=== PATIENT | female | born 1965 | race Two or more races ===

== ENCOUNTER 2021-11-03 09:01 | Outpatient (REF) | payer MEDICAID, OTHER, SELFPAY ==
--- NOTE | ~2021-11-03 | MM_ITS ---
EXAMINATION: BONE DENSITOMETRY CLINICAL INDICATION: Menopausal. COMPARISON: None (current study represents initial baseline exam). TECHNIQUE: Using a Integrated [employer] Processing DXA System (software version: 13.1) manufactured by [employer], dual-energy x-ray absorptiometry was performed of the lumbar spine and left hip. The images are of good technical quality. Summary results are attached. FINDINGS: AP SPINE L1-L4: BMD 1.141 g/cm2, Z-score -0.8, T-score -0.3, normal. LEFT FEMUR, NECK: BMD 0.743 g/cm2, Z-score -1.9, T-score -2.1, osteopenia. LEFT FEMUR, TOTAL: BMD 0.999 g/cm2, Z-score -0.3, T-score -0.1, normal. IDENTIFIED RISK FACTORS: Low calcium intake, thiazide, menopause, hysterectomy, left oophorectomy. HISTORY OF FRACTURE: None listed. MEDICATIONS: Calcium supplements or multivitamin, vitamin D. MM/XR DEXA axial skeleton IMPRESSION: 1. DIAGNOSIS: Osteopenia based on the lowest T-score value of -2.1 in the femoral neck applying World Health Organization criteria. 2. 10-YEAR FRACTURE RISK PREDICTION, FRAX: Major osteoporotic fracture (clinical spine, forearm, hip or shoulder) 3.8%. Hip fracture 0.5%. 3. Treatment Recommendations: NOF guidelines recommend consideration for treatment in postmenopausal women and men age 50 and older presenting with the following: -A hip or vertebral (clinical or morphometric) fracture. -T-score less than or equal to -2.5 at the femoral neck or spine after appropriate evaluation to exclude secondary causes. -Low bone mass at the hip or spine and a 10-year fracture probability by FRAX of greater than or equal to 3% for hip fracture or greater than or equal to 20% for major osteoporotic fracture based on the [place] adapted WHO algorithm. 4. Other Recommendations: All treatment decisions require clinical judgment and consideration of individual patient factors, including patient preferences, comorbidities, previous drug use, risk factors not captured in the FRAX model (e.g. frailty, falls, vitamin D deficiency, increased bone turnover, interval significant decline in bone density) and possible under or overestimation of fracture risk by FRAX. Additional medical evaluation for secondary cause of low bone mineral density may be appropriate. FUTURE SCAN RECOMMENDATION: People with diagnosed cases of osteoporosis or at high risk for fracture should have regular bone mineral density tests. For patients eligible for Medicare, routine testing is allowed once every 2 years. The testing frequency can be increased to one year for patients who have rapidly progressing disease, those who are receiving or discontinuing medical therapy to restore bone mass, or have additional risk factors.
== END 2021-11-03 09:02 | disposition home or self-care (01) ==
LOC: HO.MAMMO 09:01
PROVIDERS: PCP Nurse Practitioner Family; Visit Provider Nurse Practitioner Family
DX: Z13.820 Encounter for screening for osteoporosis (principal); Z78.0 Asymptomatic menopausal state; M85.80 Other specified disorders of bone density and structure, unspecified site
CPT/HCPCS: 77080

== ENCOUNTER 2022-06-28 09:41 | Outpatient (REF) | payer MEDICAID, OTHER, SELFPAY ==
--- NOTE | ~2022-06-28 | XR_ITS ---
EXAMINATION: XR CERVICAL SPINE CLINICAL INFORMATION: Neck pain COMPARISON: None TECHNIQUE: 6 views of the cervical spine, inclusive of flexion and extension views, were obtained. FINDINGS: The vertebral alignment is normal. No intrinsic bony abnormality. The disc heights and neural foramina are well maintained. The endplates and posterior elements are normal. No fracture or subluxation. The surrounding prevertebral soft tissues are unremarkable. XR/XR cervical spine min 6V IMPRESSION: Unremarkable cervical spine examination.
== END 2022-06-28 09:42 | disposition home or self-care (01) ==
LOC: HO.XRAY 09:41
PROVIDERS: PCP Registered Nurse; Visit Provider Emergency Medicine
DX: M54.2 Cervicalgia (principal)
CPT/HCPCS: 72052

== ENCOUNTER 2023-01-31 | Outpatient (REF) | payer MEDICAID, OTHER, SELFPAY ==
--- NOTE | ~2023-01-31 | US_ITS ---
EXAMINATION: US ABDOMEN COMPLETE CLINICAL INFORMATION: Right upper quadrant abdominal pain. COMPARISON: None available. TECHNIQUE: Real-time imaging of the abdominal viscera. FINDINGS: PANCREAS: Largely obscured by bowel gas limiting evaluation. ABDOMINAL AORTA: The proximal, mid, and distal segments are normal in caliber. INFERIOR VENA CAVA: Visualized portions are normal. LIVER: The liver is normal in size. The liver contour is normal. Increased hepatic echogenicity which can be seen in the setting of hepatic steatosis or underlying liver disease. No focal hepatic lesion. There is no intrahepatic biliary duct dilatation seen. GALLBLADDER: Normal. The gallbladder is physiologically distended without evidence of stones, sludge, polyps, wall thickening or pericholecystic fluid. COMMON BILE DUCT: Normal in caliber measuring 0.4 cm in diameter. RIGHT KIDNEY: Normal. No hydronephrosis. No renal calculi or focal parenchymal lesions. The kidney measures 9.9 cm in maximum dimension. LEFT KIDNEY: Normal. No hydronephrosis. No renal calculi or focal parenchymal lesions. The kidney measures 10.2 cm in maximum dimension. SPLEEN: Normal. The spleen measures 7.6 cm in maximum dimension. FREE FLUID: None. US/US abdomen complete IMPRESSION: Increased hepatic echogenicity which can be seen in the setting of hepatic steatosis or underlying liver disease.
== END 2023-01-31 00:01 | disposition home or self-care (01) ==
LOC: HO.US
PROVIDERS: Visit Provider Registered Nurse
DX: R10.10 Upper abdominal pain, unspecified (principal)
CPT/HCPCS: 76700

== ENCOUNTER 2023-02-13 08:30 | Emergency (ER) | payer MEDICAID, OTHER, SELFPAY ==
--- NOTE | ~2023-02-13 | XR_ITS ---
EXAMINATION: XR WRIST, LEFT XR HAND, LEFT CLINICAL INFORMATION: Pain COMPARISON: None available. TECHNIQUE: 4 views of the left hand and wrist FINDINGS: Bone alignment is normal. No acute fracture or dislocation is seen. The joint spaces are normal. There is a periarticular soft tissue calcification or ossification adjacent to the first DETENTION joint likely related to old trauma. Soft tissues are otherwise normal. XR/XR hand wrist LT IMPRESSION: Periarticular soft tissue calcification or ossification adjacent to the first DETENTION joint likely related to old trauma. No acute fracture or dislocation. No evidence of arthritis.
[2023-02-13 08:58] VITALS: BP 108/69; PULSE 61; RESP 18; TEMP 36.7; O2SAT 100; BMI 39.3
--- NOTE | 2023-02-13 09:49 | PC.NURSE ---
Patient presenting with injury to left hand, patient is guarding this hand at this time.
[2023-02-13] MEDS: Ibuprofen 800 MG TABLET PO (11:13)
[2023-02-13] MEDS: predniSONE 20 MG TABLET 60 MG PO (11:14)
--- NOTE | 2023-02-13 12:05 | ED.EXTPRO ---
HPI - Extremity Problem General Chief complaint: Extremity Injury, Upper Stated complaint: Left hand pain/swollen Time Seen by Provider: 02/13/23 10:16 Source: patient Mode of arrival: ambulatory Limitations: no limitations History of Present Illness HPI Narrative: 57 yold female presents to the ED for left thumb and wrist pain since yesterday that is worse on movement. patient denies any recent trauma, fever, chest pain, neck pain, shortness of breath or pain from neck radiating down arm. Patient states only left thumb pain with slight swelling at thumb joint. patient denies any redness, bluisch black discoroation, slurred speech, facial droop, paraysls of extremites, headache, or loss of vision. Related Data Previous Rx's Medication Instructions Recorded indomethacin 50 mg capsule 50 mg PO TID 5 days #15 caps 02/13/23 prednisone 20 mg tablet 40 mg PO DAILY 5 days #10 tabs 02/13/23 Allergies Allergy/AdvReac Type Severity Reaction Status Date / Time No Known Allergies Allergy Verified 02/13/23 08:57 Review of Systems Review of Systems: left thubm/hand pain Yes all other systems are reviewed and are negative [facility] Social History Social History Alcohol intake: never Smoked in Last 30 Days: No Use of substances other than those prescribed or required for medical reasons: No Advance Directives: No Advance Directives Information Provided: Yes Physical Exam Vital Signs: Vital Signs: Last Vital Signs Temp 98.0 F 02/13/23 08:58 Pulse 61 02/13/23 08:58 Resp 18 02/13/23 08:58 BP 108/69 02/13/23 08:58 Pulse Ox 100 02/13/23 08:58 O2 Del Method Room Air 02/13/23 08:58 BMI result Body Mass Index 39.3 Const: General: cooperative, healthy appearing, comfortable, no acute distress, well developed, alert, awake and Physically active Orientation/consciousness: oriented to person, oriented to place, oriented to time and patient oriented x3 HEENT: Head: Yes normal to inspection, Yes No palpable skull fracture present, Yes normocephalic, Yes atraumatic and No abrasion Eyes: General: appearance normal, both eyes and all related structures Neck: Neck: Yes normal visual inspection, Yes full ROM, Yes no lymphadenopathy, Yes no meningeal signs, Yes trachea midline, Yes supple, No anterior neck swelling and No tender Chest: Chest palpation & inspection: normal inspection of the chest and normal palpation of entire chest wall Resp: Effort & Inspection: normal respiratory effort and able to speak in complete sentences Auscultation: clear to auscultation bilaterally Cardio: Jugular venous distension: no JVD Heart sounds: S1 normal heart sound present and S2 normal heart sound present GI: Inspection: Yes normal to inspection and No abdominal wall ecchymosis Palpation (GI): Soft to palpation, not firm, nontender, no guarding and not rigid : General: No CVA tenderness and Yes no CVA tenderness Back/Spine/Pelvis: Back: no CVA tenderness, No CVA tenderness and No back tenderness Skin: General skin exam: no rashes or lesions noted, elasticity normal and turgor normal Neuro: General: oriented to person, oriented to place, oriented to time, patient oriented x3, gait normal, tone normal, moves all extremities, Normal light touch and pain sensation, no meningeal signs, no focal motor deficits, CN's II-XI intact bilaterally and normal sensation to monofilament Extrem: General: Yes normal to inspection and Yes full ROM Hand/finger images: 1. positive for slight swelling and tenderness on palpation. Patient has pain on movement of thumb. Negative for any erythema, warmth swelling, ecchymosis, warmth, or deformity. Rest of extremity normal. Motor/neruo/vascular exam is intact. LEft thumb movement limited due to pain. Positive snufff box tenderness Psych: Appearance: grossly normal, well kempt and not disheveled Medications Administered Discontinued Medications Generic Name Dose Route Start Last Admin Trade Name Freq PRN Reason Stop Dose Admin Ibuprofen 800 mg 02/13/23 10:54 02/13/23 11:13 Ibuprofen 800 Mg Tablet PO 02/13/23 10:55 800 mg ONCE ONE Administration Prednisone 60 mg 02/13/23 10:54 02/13/23 11:14 Prednisone 20 Mg Tablet PO 02/13/23 10:55 60 mg ONCE ONE Administration Medical Decision Making Medical Decision Making MDM Narrative: 57 yold female presents to the ED for left thumb pain pain that is worse on movement ( thumb joint) since yesteday. Patient denies any recent trauma, redness, fever, chills, neck pain, chest pain, shortness of breath, paralysis of extremities, facial droop, loss of visions, or slurred speech. History physical exam does not indicate tenosynovitis, stroke, myocardial infarction, septic joint, cellulitis, abscess, DVT, or arterial occlusion. Arthritis versus gout. positive for snuff box tendrness. 2:00pm patient states better improved range of motion of left thumb. Differential Diagnosis Differential Diagnoses: The differential diagnosis associated with the presentation includes (gout, arthirits, fracture, septic joint, cellulitis, DVT, arterial occlusion) Admission/Observation Consideration of admission/observation: Escalation of care including admission/observation considered Independent Interpretation I performed an independent interpretation of an: Plain X-Ray Radiology Impression Discussion of test interpretation with radiology: I have reviewed the radiologist's reading. Independent Historian Clinical information obtained from an independent historian. History obtained from or confirmed by: Other (obiee obia solution architect) Prescription Management I considered prescription management with: Pain Medication and Other (Steroid) Discharge Plan Discharge Clinical Impression: Pain of left thumb Patient Disposition: Home, Self-Care Instructions: Arthralgia (ED) Additional Instructions: La radiograf?a result? normal o negativa para cualquier fractura. El diferencial podr?a ser artritis versus gota. Siga al proveedor de atenci?n primaria para loc evaluaci?n adicional. Tambi?n tiene dolor de caja de rap?, se le colocar? loc f?marko en espiga para el pulgar. Regrese al servicio de urgencias de inmediato si empeora el dolor, aumenta la hinchaz?n, no puede piano mover el ron de los dedos de las extremidades, tiene calor, fr?o, fiebre, escalofr?os, dolor en el pecho, dificultad para respirar, estr?as pearce, hinchaz?n de las extremidades superiores, enrojecimiento de los dedos o cualquier otro s?ntoma preocupante. Prescriptions: New prednisone 20 mg tablet 40 mg PO DAILY 5 Days Qty: 10 0RF indomethacin 50 mg capsule 50 mg PO TID 5 Days Qty: 15 0RF Rx Instructions: administer with food or milk Stand Alone Forms: Work/School Release Print Language: Bulgarian
[2023-02-13 14:28] VITALS: BP 151/66; PULSE 62; RESP 16; O2SAT 98
[2023-02-13 14:30] VITALS: BP 151/66; PULSE 62; RESP 16; O2SAT 98
== END 2023-02-13 14:37 | disposition home or self-care (01) ==
PROVIDERS: Emergency Provider Emergency Medicine Emergency Medical Services; PCP Registered Nurse
DX: M79.645 Pain in left finger(s) (principal)
CPT/HCPCS: 29125; 73110; 73130; 99283; 99284

== ENCOUNTER 2023-02-17 10:32 | Outpatient (REF) | payer MEDICAID, OTHER, SELFPAY ==
[2023-02-17 13:29] LABS: Alanine Aminotransferase 24 U/L (0-31); Albumin Level 3.9 g/dL (3.5-5.0); Alkaline Phosphatase 51 U/L (39-117); Aspartate Amino Transferase 30 U/L (5-31); Bilirubin Direct 0.1 mg/dL (0.0-0.5); Bilirubin Total 0.4 mg/dL (0.0-1.0); Cholesterol 214 mg/dL; HDL Cholesterol 56 mg/dL; LDL Cholesterol Calculated 145 mg/dl; Total Protein 6.9 g/dL (6.5-8.0); Triglycerides 67 mg/dL
[2023-02-18 09:08] LABS: HBS Num1 0.28 mIU/mL (0-7.99); HBc Num1 0.08 S/CO (0.00-0.79); HBsAGNum1 0.36 S/CO (0.00-0.99); Hepatitis A Antibody IgM 0.28 Index (0-0.79); Hepatitis B Core Antibody Nonreactive (Nonreactive); Hepatitis B Surface Antigen Negative (Negative); ~HepC Num1 0.14 S/CO (0.00-0.79); ~Hepatitis A Antibody IgM Nonreactive (Nonreactive); ~Hepatitis B Surface Antibody NONREACTIVE (Nonreactive); ~Hepatitis C Antibody Nonreactive (Nonreactive)
== END 2023-02-17 10:33 | disposition home or self-care (01) ==
LOC: HO.HHCL 10:32
PROVIDERS: Visit Provider Registered Nurse
DX: K76.0 Fatty (change of) liver, not elsewhere classified (principal)
CPT/HCPCS: 36415; 80061; 80076; 86704; 86706; 86709; 86803; 87340

== ENCOUNTER 2023-02-18 12:56 | Outpatient (REF) | payer MEDICAID, OTHER, SELFPAY | END 2023-02-18 12:57 | disposition home or self-care (01) | LOC: HO.HDCLNP 12:56 | PROVIDERS: Visit Provider Registered Nurse | DX: A04.8 Other specified bacterial intestinal infections (principal) | CPT/HCPCS: 87338 ==

== ENCOUNTER 2023-03-06 16:42 | Emergency (ER) | payer MEDICAID, OTHER, SELFPAY ==
[2023-03-06 17:27] VITALS: BP 142/90; PULSE 77; RESP 18; TEMP 36; O2SAT 97; BMI 38.9
--- NOTE | 2023-03-06 17:31 | ED.GENADULT ---
HPI - General Adult General Chief complaint: GI Bleed Stated complaint: pain in bottom Time Seen by Provider: 03/06/23 19:43 Related Data Previous Rx's Medication Instructions Recorded indomethacin 50 mg capsule 50 mg PO TID 5 days #15 caps 02/13/23 prednisone 20 mg tablet 40 mg PO DAILY 5 days #10 tabs 02/13/23 hydrocortisone 1 %-pramoxine 1 % 1 appl RI BID PRN hemorrhoids #10 03/06/23 rectal foam (Proctofoam HC) grams polyethylene glycol 3350 17 17 g PO DAILY #510 grams 03/06/23 gram/dose oral powder (Miralax) Allergies Allergy/AdvReac Type Severity Reaction Status Date / Time No Known Allergies Allergy Verified 02/13/23 08:57 [facility] Social History Social History Alcohol intake: never Smoked in Last 30 Days: No Advance Directives: No Advance Directives Information Provided: Yes Patient : No Physical Exam ED Vital Signs: Vital Signs - 24 hr 03/06/23 17:27 Temperature 96.8 F Pulse Rate 77 Respiratory Rate 18 Blood Pressure 142/90 H Pulse Oximetry 97 Oxygen Delivery Method Room Air BMI result Body Mass Index 38.9 Appearance: Alert. Oriented X3. No acute distress. ENT: Pharynx normal. Oral Mucosa moist Neck: Normal inspection. Neck supple. CVS: Normal heart rate and rhythm. Pulses normal. Respiratory: No respiratory distress. Equal air entry bilateral, no wheezing/rales/rhonchi Abdomen: Soft and nontender. Bowel sounds are present, no mass palpable, no CVA tenderness rectum: Internal hemorrhoids not bleeding mild tenderness Skin: Skin warm and dry. Normal skin color. Normal skin turgor. Extremities: No lower extremity edema. No calf tenderness Neuro: Oriented X 3. No motor deficit. Course Course Course Narrative: RME: 57 yold female presents to the ED for rectal pain due to hemmhroids. patient admits to straining and mild constipation. patient states she had blood in stool last tuesday and has resolved. Patient Daughter showed us picutre of bright red blood in toilet. labs ordered Medications Administered Discontinued Medications Generic Name Dose Route Start Last Admin Trade Name Freq PRN Reason Stop Dose Admin Bisacodyl 10 mg 03/06/23 20:26 03/06/23 20:35 Bisacodyl 5 Mg Tablet.Dr BRIONES 03/06/23 20:27 10 mg ONCE ONE Administration Magnesium Hydroxide 30 ml 03/06/23 20:26 03/06/23 20:35 Milk Of Magnesia 30 Ml Oral.Susp PO 03/06/23 20:27 30 ml ONCE ONE Administration Medical Decision Making Lab Data 03/06/23 17:50 03/06/23 17:50 Labs: Lab Results 03/06/23 03/06/23 03/06/23 Range/Units 17:50 17:50 17:50 WBC 6.5 (4.8-10.8) X10*3/uL RBC 4.26 (4.20-5.50) X10*6/uL Hgb 12.0 (12.0-16.0) g/dl Hct 37.0 (37.0-47.0) % MCV 86.9 (80.0-98.0) fL MCH 28.2 (27.0-33.0) pg MCHC 32.4 (31.0-35.0) g/dl RDW 13.2 (11.0-16.0) % Plt Count 335 (160-400) X10*3/uL MPV 10.7 (9.4-12.3) fL Immature Gran % (Auto) 0.2 (0.0-0.4) % Neut % (Auto) 47.3 (45-73) % Lymph % (Auto) 42.7 H (20-40) % [place] % (Auto) 8.1 (2-11) % Eos % (Auto) 1.4 (0-4) % Baso % (Auto) 0.3 (0-2) % Lymph # (Auto) 2.8 (1.2-4.9) X10*3/uL [place] # (Auto) 0.5 (0.1-1.2) X10*3/uL Eos # (Auto) 0.1 (0.0-0.4) X10*3/uL Baso # (Auto) 0.0 (0.0-0.2) X10*3/uL Abs Immat Gran (auto) 0.01 (0.00-0.03) X10*3/uL Absolute Neuts (auto) 3.1 (2.0-8.3) x10*3/uL Absolute Nucleated RBC 0.000 (0.0-0.012) X10*3/uL Nucleated RBC % (auto) 0.0 (0.0-0.2) /100WBC PT 12.4 (11.1-13.3) SEC INR 1.0 (0.9-1.1) APTT 27.8 (26.0-36.4) SEC Sodium 143 (135-145) mmol/L Potassium 4.0 (3.3-5.1) mmol/L Chloride 104 (96-108) mmol/L Carbon Dioxide 29 (22-29) mmol/L Anion Gap 14 (12-20) BUN 12 (9-16) mg/dL Creatinine 0.84 (0.5-1.4) mg/dL Estim Creat Clear Calc 85.2 Estimated GFR > 60 Random Glucose 97 (60-115) mg/dL Calcium 9.8 (8.4-10.2) mg/dL Total Bilirubin 0.4 (0.0-1.0) mg/dL AST 18 (5-31) U/L ALT 13 (0-31) U/L Alkaline Phosphatase 56 (39-117) U/L Total Protein 7.7 (6.5-8.0) g/dL Albumin 4.3 (3.5-5.0) g/dL Discharge Plan Discharge Clinical Impression: Hemorrhoids Patient Disposition: Home, Self-Care Instructions: Constipation (ED), Hemorrhoids (ED) Additional Instructions: Drink plenty of fluids Stool softener as advised Avoid straining Proctofoam foam twice daily till it heals completely Beber mucho l?quido Suavizante de heces seg?n lo recomendado Evite esforzarse Espuma Proctofoam dos veces al d?a hasta que sane por completo Prescriptions: New polyethylene glycol 3350 [Miralax] 17 gram/dose powder 17 g PO DAILY Qty: 510 0RF Proctofoam HC 1-1 % foam 1 appl RI BID PRN (Reason: hemorrhoids) Qty: 10 0RF No Action prednisone 20 mg tablet 40 mg PO DAILY 5 Days Qty: 10 0RF indomethacin 50 mg capsule 50 mg PO TID 5 Days Qty: 15 0RF Rx Instructions: administer with food or milk Interventions: ED Discharge Assessment Last Done: 03/06/23 20:35 Discharge Date/Time: 03/06/23 20:36 Print Language: Romanian
[2023-03-06 17:55] LABS: MANUAL DIFF FLAG NO
[2023-03-06 17:56] LABS: Basophils Percent Auto 0.3 % (0-2); Eosinophils Absolute Auto 0.1 X10*3/uL (0.0-0.4); Eosinophils Percent Auto 1.4 % (0-4); Imm Gran Abs Auto 0.01 X10*3/uL (0.00-0.03); Imm Gran Pct Auto 0.2 % (0.0-0.4); Lymphocytes Absolute Auto 2.8 X10*3/uL (1.2-4.9); Lymphocytes Percent Auto 42.7 % (20-40); Mean Corpuscular HGB Conc 32.4 g/dl (31.0-35.0); Mean Corpuscular Hemoglobin 28.2 pg (27.0-33.0); Mean Corpuscular Volume 86.9 fL (80.0-98.0); Mean Platelet Volume 10.7 fL (9.4-12.3); Monocytes Absolute Auto 0.5 X10*3/uL (0.1-1.2); Monocytes Percent Auto 8.1 % (2-11); Neutrophils Absolute Auto 3.1 x10*3/uL (2.0-8.3); Neutrophils Percent Auto 47.3 % (45-73); Platelet Count 335 X10*3/uL (160-400); Red Blood Count 4.26 X10*6/uL (4.20-5.50); Red Cell Distribution Width 13.2 % (11.0-16.0); White Blood Count 6.5 X10*3/uL (4.8-10.8)
[2023-03-06 18:02] LABS: Prothrombin Time 12.4 SEC (11.1-13.3)
[2023-03-06 18:05] LABS: Partial Thromboplastin Time 27.8 SEC (26.0-36.4)
[2023-03-06 18:17] LABS: Alanine Aminotransferase 13 U/L (0-31); Albumin Level 4.3 g/dL (3.5-5.0); Alkaline Phosphatase 56 U/L (39-117); Anion Gap 14 (12-20); Aspartate Amino Transferase 18 U/L (5-31); Bilirubin Total 0.4 mg/dL (0.0-1.0); Blood Urea Nitrogen 12 mg/dL (9-16); Calcium 9.8 mg/dL (8.4-10.2); Carbon Dioxide 29 mmol/L (22-29); Chloride 104 mmol/L (96-108); Creatinine Clr Calc Pharmacy 85.2; Estimated Glomerular Filt Rate > 60; Glucose Random 97 mg/dL (60-115); Sodium 143 mmol/L (135-145); Total Protein 7.7 g/dL (6.5-8.0)
[2023-03-06] MEDS: Milk of Magnesia 30 ML ORAL.SUSP PO (20:35)
[2023-03-06] MEDS: bisacodyL 5 MG TABLET.DR 10 MG PO (20:35)
== END 2023-03-06 20:36 | disposition home or self-care (01) ==
PROVIDERS: Physician Assistant; Emergency Provider Internal Medicine; PCP Registered Nurse
DX: K64.9 Unspecified hemorrhoids (principal); K62.89 Other specified diseases of anus and rectum; Z79.899 Other long term (current) drug therapy
CPT/HCPCS: 36415; 80053; 85025; 85610; 85730; 99283; 99284

== ENCOUNTER 2023-11-21 16:29 | Outpatient (REF) | payer MEDICAID, OTHER, SELFPAY ==
[2023-11-21 17:49] LABS: MANUAL DIFF FLAG NO
[2023-11-21 18:25] LABS: Iron 60 mcg/dL (30-160); Percent Iron Saturation 24 % (15-50); Total Iron Binding Capacity 250 mcg/dL (228-428); Unsaturated Iron Binding 190 ug/dL
[2023-11-21 18:47] LABS: Folate 14.1 ng/mL (> or = 4.0); Vitamin B12 312 pg/mL (200-900)
[2023-11-21 19:01] LABS: Basophils Percent Auto 0.6 % (0-2); Eosinophils Absolute Auto 0.1 X10*3/uL (0.0-0.4); Hematocrit 35.9 % (37.0-47.0); Hemoglobin 11.6 g/dl (12.0-16.0); Imm Gran Abs Auto 0.01 X10*3/uL (0.00-0.03); Imm Gran Pct Auto 0.2 % (0.0-0.4); Lymphocytes Absolute Auto 2.5 X10*3/uL (1.2-4.9); Lymphocytes Percent Auto 50.1 % (20-40); Mean Corpuscular HGB Conc 32.3 g/dl (31.0-35.0); Mean Corpuscular Hemoglobin 28.7 pg (27.0-33.0); Mean Corpuscular Volume 88.9 fL (80.0-98.0); Monocytes Absolute Auto 0.3 X10*3/uL (0.1-1.2); Monocytes Percent Auto 6.9 % (2-11); Neutrophils Percent Auto 40.2 % (45-73); Platelet Count 310 X10*3/uL (160-400); Red Blood Count 4.04 X10*6/uL (4.20-5.50); Red Cell Distribution Width 13.4 % (11.0-16.0); White Blood Count 4.9 X10*3/uL (4.8-10.8)
== END 2023-11-21 16:30 | disposition home or self-care (01) ==
LOC: HO.HHCL 16:29
PROVIDERS: Visit Provider Emergency Medicine
DX: K92.1 Melena (principal)
CPT/HCPCS: 36415; 82607; 82746; 83540; 85025

== ENCOUNTER 2024-06-25 10:43 | Outpatient (REF) | payer MEDICAID, OTHER, SELFPAY ==
[2024-06-25 13:35] LABS: Basophils Percent Auto 0.7 % (0-2); Eosinophils Absolute Auto 0.1 X10*3/uL (0.0-0.4); Eosinophils Percent Auto 1.5 % (0-4); Hematocrit 36.2 % (37.0-47.0); Hemoglobin 11.7 g/dl (12.0-16.0); Imm Gran Abs Auto 0.01 X10*3/uL (0.00-0.03); Imm Gran Pct Auto 0.2 % (0.0-0.4); Lymphocytes Absolute Auto 2.2 X10*3/uL (1.2-4.9); Lymphocytes Percent Auto 48.8 % (20-40); MANUAL DIFF FLAG NO; Mean Corpuscular HGB Conc 32.3 g/dl (31.0-35.0); Mean Corpuscular Hemoglobin 28.6 pg (27.0-33.0); Mean Corpuscular Volume 88.5 fL (80.0-98.0); Mean Platelet Volume 11.1 fL (9.4-12.3); Monocytes Absolute Auto 0.5 X10*3/uL (0.1-1.2); Monocytes Percent Auto 10.1 % (2-11); Neutrophils Absolute Auto 1.8 x10*3/uL (2.0-8.3); Neutrophils Percent Auto 38.7 % (45-73); Platelet Count 329 X10*3/uL (160-400); Red Blood Count 4.09 X10*6/uL (4.20-5.50); Red Cell Distribution Width 13.5 % (11.0-16.0); White Blood Count 4.6 X10*3/uL (4.8-10.8)
[2024-06-25 14:23] LABS: Alanine Aminotransferase 18 U/L (0-31); Alkaline Phosphatase 55 U/L (39-117); Amylase 49 U/L (28-100); Anion Gap 10 (12-20); Aspartate Amino Transferase 22 U/L (5-31); Bilirubin Total 0.3 mg/dL (0.0-1.0); Blood Urea Nitrogen 13 mg/dL (9-16); Calcium 9.2 mg/dL (8.4-10.2); Carbon Dioxide 28 mmol/L (22-29); Chloride 109 mmol/L (96-108); Estimated Glomerular Filt Rate > 60; Glucose Random 99 mg/dL (60-115); Lipase 24 U/L (8-78); Potassium 4.5 mmol/L (3.3-5.1); Sodium 142 mmol/L (135-145)
[2024-06-26 15:00] LABS: H Pylori Breath Test Negative (Negative)
== END 2024-06-25 10:44 | disposition home or self-care (01) ==
LOC: HO.HHCL 10:43
PROVIDERS: Visit Provider Internal Medicine
DX: R10.13 Epigastric pain (principal)
CPT/HCPCS: 36415; 80053; 82150; 83013; 83690; 85025

== ENCOUNTER 2024-10-24 11:58 | Emergency (ER) | payer MEDICAID, OTHER, SELFPAY ==
--- NOTE | ~2024-10-24 | XR_ITS ---
EXAMINATION: XR CHEST 2 VIEWS HISTORY: chest pain COMPARISON: There are no prior studies for comparison. FINDINGS: PA and lateral views of the chest are submitted. The lungs are expanded and clear. There is no pleural effusion, pneumothorax, or pulmonary vascular congestion. The heart is normal in size. There is degenerative disc disease of the spine. XR/XR chest 2V IMPRESSION: No acute cardiopulmonary abnormality. Electronically signed by: Adams Howard MD 10/24/2024 01:43 PM EDT
[2024-10-24 12:02] VITALS: BP 138/86; PULSE 85; RESP 20; TEMP 36.6; O2SAT 98; BMI 39.3
--- NOTE | 2024-10-24 12:02 | ECG_ITS ---
Test Reason : CHEST PAIN Blood Pressure : */* mmHG Vent. Rate : 76 BPM Atrial Rate : 76 BPM P-R Int : 146 ms QRS Dur : 80 ms QT Int : 386 ms P-R-T Axes : 11 -6 101 degrees QTcB Int : 434 ms Normal sinus rhythm Nonspecific T wave abnormality Abnormal ECG No previous ECGs available Referred By: Generic ED Physician Electronically Signed By: WESTON WILDER
--- NOTE | 2024-10-24 12:11 | ED_ITS ---
HPI - URI/Sore Throat General Chief Complaint: Upper Respiratory Symptoms Stated Complaint: Chest Pain, Shortness Of Breath Related Data Previous Rx's ?Medication ?Instructions ?Recorded indomethacin 50 mg capsule 50 mg PO TID 5 days #15 caps 02/13/23 prednisone 20 mg tablet 40 mg (2 x 20 mg) PO DAILY 5 days 02/13/23 #10 tabs hydrocortisone 1 %-pramoxine 1 % 1 appl SD BID PRN hemorrhoids #10 03/06/23 rectal foam (Proctofoam HC) grams polyethylene glycol 3350 17 17 g PO DAILY #510 grams 03/06/23 gram/dose oral powder (Miralax) Allergies Allergy/AdvReac Type Severity Reaction Status Date / Time No Known Allergies Allergy Verified 10/24/24 12:08 [facility] Social History Social History Alcohol intake: never Advance Directives: No Advance Directives Information Provided: Yes Physical Exam Vital Signs: Vital Signs: Last Vital Signs Temp 97.8 F 10/24/24 12:02 Pulse 89 10/24/24 12:37 Resp 24 H 10/24/24 12:37 BP 138/86 10/24/24 12:02 Pulse Ox 98 10/24/24 12:02 O2 Del Method Room Air 10/24/24 12:02 BMI result Body Mass Index 39.3 Course Course Course Narrative: This is an RME: Additional HPI, ROS, PE not included below will be deferred to primary provider. RME assessment and note performed by: Antonella Mendosa PA-C This is a 59-year-old female who presents emergency department with concerns for congestion, cough, headaches, chest pain with cough, and lower back pain. Has had the symptoms for the last 4 days. Endorsing sick contacts. Lungs with inspiratory and expiratory wheezes noted throughout all lung pratt. No history of asthma or COPD. No smoking history. Plan: Viral swabs, EKG, chest x-ray, ED bronch protocol Reevaluation(s) Reevaluation #1: Patient left without completing treatment. Medications Administered Discontinued Medications Generic Name Dose Route Start Last Admin Trade Name Freq PRN Reason Stop Dose Admin Albuterol Sulfate 2.5 mg/ 0 mg 10/24/24 12:30 10/24/24 12:36 Albuterol/Ipratropium 3 ml INHALE 10/24/24 12:31 1 dose ONCE ONE Administration Medical Decision Making Lab Data Labs: Lab Results 10/24/24 Range/Units 13:54 Influenza Type A (PCR) NEGATIVE (Negative) Influenza Type B (PCR) NEGATIVE (Negative) RSV RNA Qual (PCR) NEGATIVE (Negative) SARS-CoV-2 RNA (RT-PCR) NEGATIVE (Negative) Discharge Plan Discharge Clinical Impression: Cough Patient Disposition: Left W/O Completing Treatment Prescriptions: No Action prednisone 20 mg tablet 40 mg PO DAILY 5 Days Qty: 10 0RF indomethacin 50 mg capsule 50 mg PO TID 5 Days Qty: 15 0RF Rx Instructions: administer with food or milk polyethylene glycol 3350 [Miralax] 17 gram/dose powder 17 g PO DAILY Qty: 510 0RF Proctofoam HC 1-1 % foam 1 appl SD BID PRN (Reason: hemorrhoids) Qty: 10 0RF Discharge Date/Time: 10/24/24 17:18
[2024-10-24] MEDS: Albuterol Sulfate 2.5 MG, Albuterol/Iprat 2.5/0.5MG 3 ML 3 ML INHALE (12:36)
[2024-10-24 12:37] VITALS: PULSE 89; RESP 24; O2SAT 98
[2024-10-24 14:45] LABS: Influenza A PCR NEGATIVE (Negative); Influenza B PCR NEGATIVE (Negative); Resp Syncy Virus RNA Qual PCR NEGATIVE (Negative); SARS COV2 PCR INHOUSE NEGATIVE (Negative)
--- OUTSIDE RECORDS SUMMARY | 2024-10-24 17:45 | XMS_ITS | Encounter Summary ---
Author Organization [employer] Address [address] [place] [address] [address] [place] [address] Care Team Providers Care Hide Examiner Name Role Phone [facility] Primary Care Provider [phone] Reason for Referral * Consultation (Routine) - Pending Review Specialty Diagnoses / Procedures Referred By Giulia avila Referred To Contact Ophthalmology Diagnoses Combined form of age-related cataract, both eyes Tammy Mercado, OD [address] [place] [address] Phone: tel: fax: Mark Nichols MD [address] [place] [id number] Phone: tel: Referral ID Status Reason Start Date Expiration Date Visits Requested Visits Authorized [id number] Pending Review Specialty Services Required 10/09/2024 10/09/2025 1 1 Encounter Details Date Type Department Care Team (Late st Contact Info) Description 10/09/2024 Orders Only [facility] [address] [place] [address] Tammy Mercado, OD [address] [place] [address] Combined form of age-related cataract, both eyes (Primary Dx) Social History Tobacco Use Types Packs/Day Years Used Date Smoking Tobacco: Never Smokeless Tobacco: Never Alcohol Use Standard Drinks/Week Comments Never 0 (1 standard drink = 0.6 oz pur e alcohol) Depression Answer Date Recorded Patient Health Questionnaire-9 Score 4 08/23/2022 Housing Stability Answer Date Recorded What is your housing situation today? I have del moreno 05/11/[address] you li ve. Do you have problems with any of the following? None of the above 05/11/2023 Food Insecurity Answer Date Recorded Within the past 12 months, y ou worried that your food would run out before you got money to buy more: Never True 05/11/2023 Within the past 12 months,th e food you bought just didn't last and you didn't have enough money to get more: Never True Transportation Answer Date Recorded In the past 12 months, has l ack of transportation kept you from medical appts, meetings, work or from getting things needed for daily living? No 05/11/2023 Utilities Answer Date Recorded In the past 12 months, has t he electric, gas, oil or water company threatened to shut off services in your home? No 05/11/2023 Depression Answer Date Recorded Patient Health Questionnaire-2 Score 2 08/23/2022 Comments Unknown Sex and Gender Information Value Date Recorded Sex Assigned at Female 05/24/2022 10:40 AM EDT Legal Sex Female 10:40 AM EDT Gender Identity Female 05/24/2022 10:40 AM EDT Sexual Orientation Don't know 05/24/2022 10 :40 AM EDT documented as of this encounter Plan of Treatment Upcoming Encounters Date Type Department Care Team (Late st Contact Info) Description 01/14/2025 10:45 AM EDT Office Visit [facility] [address] [place] [address] [facility] [address] [place] [address] Scheduled Referrals Name Type Priority Associated Diagnoses Order Schedule Referral to Ophthalmology Outpatient Referral Routine Combined form of age-related cataract, both eyes Expected: 10/09/2024 (Approximate), Expires: 10/09/2025 documented as of this encounter Visit Diagnoses Diagnosis Combined form of age-related cataract, both eyes- Primary documented in this encounter Additional Health Concerns Assessment Noted Time PHQ-9 Depression Total Score: 4 08/23/19 23 1:45 PM EST documented as of this encounter Care Teams Hide Examiner Relationship Specialty Start Date End Date Dresher TADEO Argueta [address] [place] [address] PCP - General Family Medicine 10/08/24 documented as of this encounter
--- OUTSIDE RECORDS SUMMARY | 2024-10-24 17:45 | XMS_ITS | Clinical Summary ---
Author Organization [employer] Address [address] [facility] 7t [place] [address] Care Team Providers Care Button And Buckle Maker Name Role Phone [facility] Primary Care Provider [phone] Allergies No known active allergies Medications calcium carbonate (Os-Jose Alberto) 1250 (500 Ca) MG chewable tablet take one chewable tablet by mouth daily with vitamin d supplement 022 Active Blood Pressure Monitoring (Omron 3 Series BP Monitor) device USE TO CHECK BLOOD PRESSURE EVERY DAY DIRECTED 022 Active naproxen (Naprosyn) 500 MG tablet TAKE 1 TABLET BY MOUTH TWICE DAILY WITH FOOD NEEDED FOR PAIN Active D3 Super Strength 50 MCG (2000 UT) capsule Take 1 capsule (50 mcg) by mouth in the morning. 90 capsule 1 023 Active Calcium Antacid 500 MG chewable tablet CHEW 1 TABLET BY MOUTH EVERY DAY WITH VITAMIN D 023 Active atorvastatin (Lipitor) 40 MG tabletIndications :Mixed hyperlipidemia Take 1 tablet (40 mg) by mouth in the morning. 30 tablet 11 023 Active acetaminophen (Tylenol) 500 MG tablet Take 2 tablets (1,000 mg) by mouth every 6 (six) hours if needed for moderate pain or fever for up to 25 doses. 40 tablet 024 Active ibuprofen 400 MG tablet Take 1 tablet (400 mg) by mouth every 6 (six) hours if needed for moderate pain or fever for up to 30 doses. 30 tablet 024 Active tiZANidine (Zanaflex) 2 MG tablet Take 1 tablet (2 mg) by mouth every 6 (six) hours if needed for muscle spasms for up to 10 days. 30 tablet 024 Active lidocaine (Lidoderm) 5 % patch Apply 1 patch topically Once per day. Remove & discard patch within 12 hours or as directed by . 30 patch 2 024 2024 Active famotidine (Pepcid) 20 MG tabletIndications :Abdominal pain, epigastric Take 1 tablet (20 mg) by mouth 2 times daily. 60 tablet 1 024 2024 Active hydroCHLOROthiazi de (HYDRODiuril) 25 MG tabletIndications :Primary hypertension Take 1 tablet by mouth every day 90 tablet 025 Active valsartan (Diovan) 320 MG tabletIndications :Primary hypertension TAKE 1 TABLET BY MOUTH EVERY DAY 90 tablet 025 Active valsartan (Diovan) 320 MG tabletIndications :Primary hypertension TAKE 1 TABLET BY MOUTH EVERY DAY 90 tablet 024 2024 Discontinued(R eorder (will not trigger notification to Pharmacy)) hydroCHLOROthiazi de (HYDRODiuril) 25 MG tabletIndications :Primary hypertension TAKE 1 TABLET BY MOUTH EVERY DAY 90 tablet 024 2024 Discontinued(R eorder (will not trigger notification to Pharmacy)) Active Problems Problem Noted Date Diagnosed Date Abdominal pain, epigastric 06/25/2024 Assessment & Plan (06/25/2024 10:27 AM EST): I advise patient to avoid NSAIDs, spicy and acid food, I advise to eat at the same time every day, I advise to elevate the head of the bed and take medications as prescribe I will test for H pylori today (urea breath test) Famotidine + zofran today Labs ordered today patient will be contacted with results ED precautions reviewed with patient Patient will like to put on hold her GI referral, the only place that would accept her insurance is in [facility] and transportation is very difficult for her Fatty liver 03/05/2023 Overview (03/05/2023): Notes on Abd US 01/31/23 Increased hepatic echogenicity which can be seen in the setting of hepatic steatosis or underlying liver disease. Liver enzymes WNL 02/06/23 Lipid panel elevated Assessment & Plan (03/05/2023 11:10 PM EDT): Will order repeat hepatic function and lipid panel F/u 3 months or sooner PRN with new PCP Health care maintenance 02/13/2023 Overview (03/05/2023): Routine Health Maintenance: Immunizations: Received Hep B Dose 1. Declines COVID vaccine 12/20/22; TDAP and shingles vaccine due HIV: Nonreactive 10/01/21 Hep C: Nonreactive 10/01/21 Hepatitis B: Nonreactive surface antibodies 10/01/21. Recommend repeat booster vaccine Pap Smear: No record, Discuss at f/u Mammogram: No records, need to discuss BMD: 11/03/21 1. DIAGNOSIS: Osteopenia based on the lowest T-score value of -2.1 in the femoral neck applying World Health Organization criteria. Colonoscopy: DUE, discuss next visit. Per ACS age 45-75 average risk regular screening with annual fecal test, stool DNA test every 3 years, or visual exam (colonoscopy every 10 [address] colonography every 5 years). Continue screening >age 75 if in good health and life expectancy > 10 years. Lung cancer: Never smoker Eye: October 2021, wears eyeglasses, bifocal Last Dental Visit: Unknown, needs cleaning. H. pylori infection 01/05/2023 Overview (01/05/2023): ?? Positive urea breath test on 12/31/22 ?? Started on Quad therapy with MARIE due approx 02/16/23 Assessment & Plan (03/05/2023 11:04 PM EDT): Due for test of cure Order H pylori stool test F/u 3 months with new PCP or sooner PRN Urge incontinence 10/25/2022 Assessment & Plan (02/13/2023 7:22 PM EDT): Reports urge incontinence Refer to urology to discuss sx and treatment F/u PRN Hair loss 10/25/2022 Left ventricular hypertrophy 08/23/2022 Overview (08/23/2022): Evaluated by [facility] Has followup appt 11/19/22 Assessment & Plan (02/13/2023 7:12 PM EDT): Cleared by [facility]iology. No f/u needed Osteopenia 11/09/2021 Overview (08/23/2022): Treating with Vitamin D and calcium supplements Normocytic anemia 10/22/2021 Overview (02/13/2023): Was treating with iron supplement, stopped Summer 2021 Hemoglobin slightly decreased 08/30/22 Iron levels WNL No iron supplement Hyperlipidemia 10/04/2021 Overview (02/13/2023): Lipid panel elevated 08/30/22 Treating with Low fat diet, continue atorvastatin 10mg. Repeat lipid panel in 3 months Hypertensive disorder 10/04/2021 Overview (02/13/2023): hydrochlorothiazide 25mg daily and Valsartan 320mg Amlodipine 10 mg discontinued 10/25/22 Assessment & Plan (02/13/2023 7:12 PM EDT): Educated pt on importance to take medication daily Monitor for sx of hypotension or hypertension F/u PRN Encounters Date Type Department Care Team Description 10/09/2024 Orders Only [facility] [address] [place] [address] Rogelio, Tammy, OD Combined form of age-related cataract, both eyes (Primary Dx) 10/09/2024 Orders Only [facility] [address] [place] [address] Rogelio, Tammy, OD Combined form of age-related cataract, both eyes (Primary Dx) 09/25/2024 Refill [facility] [address] [place], [place] [id number] Mariann Dowd NP Primary hypertension 09/05/2024 Telephone [facility] [address] [place] [address] Alessia Guthrie ODALIS Mat recall from 08/06/2024 2:00 PM EST Office Visit [facility] [address] [place] [address] Tammy Mercado, OD Chorioretinal scar of left eye (Primary Dx); Combined form of age-related cataract, both eyes; Meibomian gland dysfunction; Presbyopia of both eyes 08/06/2024 Travel from Last 3 Months Immunizations Name Administration Dates Next Due Hep B, adult 02/17/2023 Family History Medical History Relation Name Comments Coronary artery disease Father Lung cancer Father's Brother Glaucoma Maternal Grandfather Glaucoma Mother Bone cancer Mother's Sister Vaginal cancer Mother's Sister Relation Name Status Comments Father Father's Brother Maternal Grandfather Mother Mother's Sister Social History Tobacco Use Types Packs/Day Years Used Date Smoking Tobacco: Never Smokeless Tobacco: Never Tobacco Cessation:Counseling Given: Not Answered Alcohol Use Standard Drinks/Week Comments Never 0 (1 standard drink = 0.6 oz pur e alcohol) Depression Answer Date Recorded Patient Health Questionnaire-9 Score 4 08/23/2022 Housing Stability Answer Date Recorded What is your housing situation today? I have del tiffanie 05/11/[address] you li [...] Don't know 05/24/2022 10 :40 AM EDT Last Filed Vital Signs Vital Sign Reading Time Taken Comments Blood Pressure 142/86 06/25/2024 9:00 AM EST Pulse 74 06/25/2024 9:00 AM EST Temperature 36.6 ??C (97.9 ??F) 06/25/2024 9:00 AM ES T Respiratory Rate 16 06/25/2024 9:00 AM EST Oxygen Saturation 98% 06/25/2024 9:00 AM EST Inhaled Oxygen Concentration - - Weight 108 kg (237 lb) 06/25/2024 9:00 AM EST Height 160 cm (5' 3 ) 01/16/2024 11:02 AM EDT Body Mass Index 41.98 01/16/2024 11:02 AM EDT Plan of Treatment Upcoming Encounters Date Type Department Care Team (Late st Contact Info) Description 01/14/2025 10:45 AM EDT Office Visit [facility] [address] [place] [address] [facility] [address] [place] [address] Health Maintenance Due Date Last Done Comments CT Colonography 1967 Colonoscopy 1967 Colorectal Cancer Screening 1967 FIT DNA/Cologuard 1967 FIT 1967 FOBT 1967 Sigmoidoscopy 1967 Alcohol/Substance Use Screening 1979 DTaP/Tdap/Td Vaccines (1 - Tdap) 1986 Hepatitis A Vaccines (1 of 2 - Risk 2-dose series) 1986 Pneumococcal Vaccine: 50+ Years (1 of 1 - PCV) 2017 Zoster Vaccines (1 of 2) 2017 Hepatitis B Vaccines (2 of 3 - 19+ 3-dose series) 03/17/2023 02/17/2023 Depression Screening 08/23/2023 08/23/2022, 08/23/2022 SDOH Screening 08/23/2023 08/23/2022 Mammogram 11/04/2023 11/03/2021 COVID-19 Vaccine (1 - 2023-2 5 season) 2024 Influenza Vaccine (#1) 2024 Tobacco Screening 08/24/2025 08/24/2024 Pap Smear 09/20/2025 09/20/2022 Cervical Cancer Screening 09/20/2027 HPV/Cotest 09/20/2027 09/20/2022 Lipid Panel 02/18/2028 02/17/2023, 08/30/2022, 10/01/2021 RSV Patients and Patients Aged 60 years or older (1 - 1-dose 75+ series) 2042 HIV Screening Completed 10/01/2021 Hepatitis C Screening Completed 02/17/2023 , 10/01/2021 HIB Vaccines Aged Out No longer eligi ble based on patient's age to complete this topic HPV Vaccines Aged Out No longer eligi ble based on patient's age to complete this topic IPV Vaccines Aged Out No longer eligi ble based on patient's age to complete this topic Meningococcal Vaccine Aged Out No reggie flip eligible based on patient's age to complete this topic RSV under 20 months Aged Out No longe r eligible based on patient's age to complete this topic Rotavirus Vaccines Aged Out No longer eligible based on patient's age to complete this topic Procedures Procedure Name Priority Date/Time Associated Diagnosis Comments HEPATITIS PANEL, GENERAL Routine 02/17/2023 10:17 AM EDT Fatty liver LIPID PANEL, STANDARD Routine 02/17/2023 10:17 AM EDT Fatty liver THINPREP IMAGING PAP AND HPV MRNA E6/E7 WITH REFLEX TO HPV 16,18/45 Routine 09/20/2022 3:11 PM EST Pap smear for cervical cancer screening MAMMOGRAM GENERIC Routine 11/03/2021 9:5 7 AM EDT HIV 1/2 ANTIGEN/ANTIBODY, FOURTH GENERATION W/RFL Routine 10/01/2021 10:50 AM EST from Last 3 Months or Most Recently Relevant to Health Maintenance Results * Hepatitis Panel, General (02/17/2023 10:17 AM EDT) Hepatitis A IgM Nonreactive Nonreactive [facility] Comment:IgM antibodies to PARDO V not detected; does not exclude earlyacute or recovered HAV infection. ~Hepatitis B Surface Antibody NONREACTIVE Nonreactive [facility] Comment:Nonreactive: < 8.00 mIU/mL Hepatitis B Core Antibody Nonreactive Nonreactive [facility] Hepatitis C Antibody Nonreactive Nonreactive [facility] Comment:Antibodies to HCV no t detected; does not exclude early acuteHCV infection. Hepatitis B Surface Ag Negative Negative [facility] Blood 02/17/2023 10:1 7 AM EDT 02/17/2023 11:18 AM EDT us Charmaine Regla Cheney BARGE ENGINEER LAB BLOOD ORDERABLES Final Result [facility] [address] [place] [phone] * Lipid Panel, Standard (02/17/2023 10:17 AM EDT) Triglycerides 67 mg/dL [facility] Comment:Desirable Triglyceri de: less than 150 mg/dLBorderline High Triglyceride 150-199 mg/dLHigh Triglyceride: 200-499 mg/dLVery High Triglyceride: greater than or equal to 5OO mg/dL Cholesterol 214 mg/dL [facility] Comment:Desirable Cholestero l: less than 200 mg/dLBorderline High Cholesterol: 200-239 mg/dLHigh Cholesterol: greater than 239 mg/dL LDL Cholesterol Calculated 145 mg/dl [facility] Comment:Desirable LDL: less than 100 mg/dLNear Optimal/Above Optimal LDL: 110- 129 mg/dLBorderline High LDL: 130-159 mg/dLHigh LDL: 160-189 mg/dLVery High LDL: greater than or equal to 190 mg/dL HDL Cholesterol 56 mg/dL [facility] Comment:Desirable HDL: great er than 40 mg/dL Note: This HDL assay may give artificially low results in patients with liver disease. Blood Venous blood specimen / Unknown 02/17/2023 10:17 AM EDT 02/17/2023 11:18 AM EDT Charmaine Cheney BARGE ENGINEER LAB BLOOD ORDERABLES Final Result [facility] [address] [place] [address] [phone] * Thinprep TIS PAP And HPV mRNA E6/E7 With Reflex To HPV 16,18/45 (09/20/2022 3:11 PM EST) Clinical Information: None given 57 YEAR OLD FEMALE WITH LAST PAP 3 [employer] LMP: NONE GIVEN [facility] Prev. PAP: NONE GIVEN [facility] Prev. BX: NO [employer] SOURCE: None given [employer] Statement Of Adequacy: SATISFACTORY FOR EVALUATION [employer] Interpretation/Re sult: [employer] Comment: Negative for intraepithelial lesion or malignancy. Atrophic pattern; predominantly parabasal cells COMMENT: This Pap test has been evaluated with computer assisted technology. [employer] Hot Patcher: Windy Gametime Comment: BK,CT(ASCP) CT screening location: [address] (Always Message) [facility] [employer] Comment: EXPLANATORY NOTE: The Pap is a screening test for cervical cancer. It is not a diagnostic test and is subject to false negative and false positive results. It is most reliable when a satisfactory sample, regularly obtained, is submitted with relevant clinical findings and history, and when the Pap result is evaluated along with historic and current clinical information. HPV nRNA E6/E7 Not Detected Not Detected [employer] Comment: Methodology: Cushion Maker Hand-Mediated Amplification This assay detects E6/E7 viral messenger RNA (mRNA) from 14 high-risk HPV types (16,18,31,33,35,39,45,51,52,56,58,59,66,68). Cervical sources are required for HPV testing. If a vaginal source from a patient who has had a total hysterectomy with removal of cervix was submitted, please contact the testing laboratory for alternative testing options. For additional information, please refer to http://education.Sentrinsic/faq/BSH013q6 (This link if provided for information/ educational purposes only.) Genital fluid specimen (specimen) 09/20/2022 3:11 PM EST 09/21/2022 8:56 PM EST Charmaine Cheney BARGE ENGINEER LAB PATHOLOGY ORDERABLES F inal Result [facility] [address] [facility] [address], [facility], [place] [address] [facility] [address] [facility] [address], ([address]) [place] [address] * Mammography Report 1 (11/03/2021 9:57 AM EDT) Anatomical Region Laterality Modality Breast Bilateral Mammography 11/03/2021 9:57 AM EDT Narrative 11/04/2021 8:15 AM EDT Refer to the Notes tab for result details [facility] Procedure: Mammography Report 1 Procedure Note Provider, MD Mil - 10/17/2022 Refer to the Notes tab for result details [facility] Procedure: Mammography Report 1 Rolanda Patino BARGE ENGINEER IMG BI PROCEDURES Final Result * HIV 1/2 ANTIGEN/ANTIBODY,FOURTH GENERATION W/RFL (10/01/2021 10:50 AM EST) HIV-1/2 ANTIGEN AND ANTIBODIES, 4TH GENERATION W/ REFLEX NON-REACT JAGDEEP NON-REACT JAGDEEP [facility] Comment: HIV-1 antigen and HIV-1/HIV-2 antibodies were not detected. There is no laboratory evidence of HIV infection. ?? PLEASE NOTE: This information has been disclosed to you from records whose confidentiality may be protected by state law. ??If your state requires such protection, then the state law prohibits you from making any further disclosure of the information without the specific written consent of the person to whom it pertains, or as otherwise permitted by law. A general authorization for the release of medical or other information is NOT sufficient for this purpose. ? For additional information please refer to http://education.SoPost.COVEGA/faq/SPQ915 (This link is being provided for informational/ educational purposes only.) ? The performance of this assay has not been clinically validated in patients less than 2 years old. ?? 10/01/2021 10:5 0 AM EST us Rolanda Patino BARGE ENGINEER LAB BLOOD ORDERABLES Final Res ult [facility] Anywhere [address] from Last 3 Months or Most Recently Relevant to Health Maintenance Insurance [facility] Care Teams Button And Buckle Maker Relationship Specialty Start Date End Date Sterling ForestEllie FNP [address] [place] [address] [place] [address] PCP - General Family Medicine 10/08/24
--- OUTSIDE RECORDS SUMMARY | 2024-10-24 17:45 | XMS_ITS | Encounter Summary ---
Author Organization [employer] Address [address] [facility] 7t [place] [address] Care Team Providers Care Rug Dyer Helper Name Role Phone Vikash Ellie [employer] Primary Care Provider [phone] Encounter Details Date Type Department Care Team (Late st Contact Info) Description 10/09/2024 Orders Only [facility] OPT[facility]ETRY [address] [place] [address] Rogelio, Tammy, OD [address] [place] [address] Combined form of age-related cataract, both eyes [...] Office Visit [facility] [address] [place] [address] Ellie Suh FNP [address] [place] [address] documented as of this encounter Visit Diagnoses Diagnosis Combined form of age-related cataract, both eyes- Primary documented in this encounter Additional Health Concerns Assessment Noted Time PHQ-9 Depression Total Score: 4 08/23/19 23 1:45 PM EST documented as of this encounter Care Teams Rug Dyer Helper Relationship Specialty Start Date End Date Ellie Suh FNP [address] [place] [address] PCP - General Family Medicine 10/08/24 documented as of this encounter
== END 2024-10-24 17:18 | disposition left against medical advice (07) ==
PROVIDERS: Physician Assistant Medical; Emergency Provider Emergency Medicine
DX: R05.9 Cough, unspecified (principal); R07.89 Other chest pain; R06.02 Shortness of breath; M54.50 Low back pain, unspecified; Z03.818 Encounter for observation for suspected exposure to other biological agents ruled out
CPT/HCPCS: 0241U; 71046; 93005; 94640; 99284

== ENCOUNTER → 2024-10-24 12:02 | Outpatient (BNV) | payer MEDICAID, SELFPAY | PROVIDERS: Emergency Provider Emergency Medicine; Visit Provider Internal Medicine | DX: R94.31 Abnormal electrocardiogram [ECG] [EKG] (principal); R07.9 Chest pain, unspecified | CPT/HCPCS: 93010 ==

== ENCOUNTER → 2024-10-24 12:11 | Outpatient (BNV) | payer MEDICAID, SELFPAY | PROVIDERS: Visit Provider Radiology Diagnostic Radiology | DX: R07.9 Chest pain, unspecified (principal) | CPT/HCPCS: 71046 ==

== ENCOUNTER 2025-03-04 15:04 | Outpatient (REF) | payer MEDICAID, OTHER, SELFPAY ==
--- OUTSIDE RECORDS SUMMARY | 2025-03-04 15:25 | XMS_ITS | Encounter Summary ---
Author Organization [employer] Address [address] [place] [address] [address], [place] [address] Care Team Providers Care Drop Wire Hanger Name Role Phone Ellie Suh ACCOUNT AUDITOR Primary Care Provider [phone] Reason for Referral * Consultation (Routine) - Closed Specialty Diagnoses / Procedures Referred By Contjayy t Referred To Contact Ophthalmology Diagnoses Combined form of age-related cataract, both eyes Tammy Mercado, OD [address] [place] [address] Phone: tel: fax: Mark Nichols MD [address] [place] [address] Phone: tel: Referral ID Status Reason Start Date Expiration Date V isits Requested Visits Authorized [id number] Closed Specialty Services Required 10/09/2024 10/09/2025 1 1 Encounter Details Date Type Department Care Team (Late st Contact Info) Description 10/09/2024 Orders Only [facility] OPTOMETRY [address] [place] [address] Tammy Mercado, OD [address] [place] [address] Combined form of age-related cataract, both eyes [...] as of this encounter Plan of Treatment Scheduled Referrals Name Type Priority Associated Diagnoses [...] documented as of this encounter Care Teams Drop Wire Hanger Relationship Specialty Start Date End Date Ellie Suh FNP [address] [place] [address] PCP - General Family Medicine 10/08/24 documented as of this encounter
--- OUTSIDE RECORDS SUMMARY | 2025-03-04 15:25 | XMS_ITS | Clinical Summary ---
Author Organization [facility] Address [address] [place] [address] Phone Care Team Providers Care Sand Miller Name Role Phone System, Provider Not In PhD Primary Care Provide r Unavailable Social History Tobacco Use Types Packs/Day Years Used Date Smoking Tobacco: Never Assessed Education Answer Date Recorded Are you interested in more education? Not on trina e 12/27/2024 Are you concerned about learning? Not on file 12/27/2024 No 12/27/2024 No 12/27/2024 Digital Access Answer Date Recorded No 12/27/2024 No 12/27/2024 Reliable internet access at home? Not on file 12/27/2024 Device with a working camera? Not on file Comments Unknown Sex and Gender Information Value Date Recorded Sex Assigned at Not on file Legal Sex Female 2:02 PM EDT Gender Identity Not on file Sexual Orientation Not on file Plan of Treatment Upcoming Encounters Date Type Department Care Team (Late st Contact Info) Description 07/04/2025 2:40 PM EST Office Visit [facility] [address] [facility] 1st [place] [address] Satya Hightower MD [address] [place] [address] - [place] [address] [email or web address] Health Maintenance Due Date Last Done Comments Adult Td,Tdap Booster 1967 LIPID PANEL 1967 DEPRESSION SCREENING 1979 SMOKING Hx and SMOKELESS TOB ACCO SCREENING 1980 HEPATITIS C SCREENING 1985 HIV ONE-TIME SCREENING (18-6 5 YEARS) 1985 PAP SMEAR 1988 MAMMOGRAM 2007 COLOGUARD 2012 COLONOSCOPY 2012 COLORECTAL CANCER SCREENING 2012 FIT TEST 2012 FOBT 2012 SIGMOIDOSCOPY 2012 VIRTUAL COLONOSCOPY 2012 PNEUMOCOCCAL VACCINES (50+ y ears) (1 of 1 - PCV) 2017 ZOSTER VACCINES (1 of 2) 2017 COVID-19 VACCINE (1 - 2023-2 5 season) 2024 HEPATITIS A VACCINES Aged Out No long er eligible based on patient's age to complete this topic HIB VACCINES Aged Out No longer eligi ble based on patient's age to complete this topic MENINGOCOCCAL VACCINES (ACWY) Aged Out No longer eligible based on patient's age to complete this topic MENINGOCOCCAL VACCINES (B) Aged Out N o longer eligible based on patient's age to complete this topic Medical Devices Not on file Insurance [facility]ULL [facility] FULL [facility] FULL [facility] FULL [facility] FULL Care Teams Sand Miller Relationship Specialty Start Date End Date System, Provider Not In, PhD Partners [address] [address] PCP - General 01/14/25 Additional Source Comments The information contained in this document represents components of the legal health record. It is not the complete legal health record.[facility]
--- OUTSIDE RECORDS SUMMARY | 2025-03-04 15:25 | XMS_ITS | Referral Summary ---
Author Organization [facility] Address [address] [place] [address] Care Team Providers Care Internet Sales Consultant Name Role Phone Charmaine Cheney Primary Care Provider [phone] Encounters Date Type Department Care Team Description 01/28/2025 12:36 PM EDT - 01/28/2025 1:06 PM EDT Surgery [address] Endoscopy [address] [address] Syl Mcdonough MD COLONOSCOPY SCREENING, LOW RISK WITH POSSIBLE MODERATE SEDATION [13738 (CPT )] 01/28/2025 1:10 PM EDT Anesthesia Event [address] [address] Rosi Proctor MD 01/28/2025 12:06 PM EDT - 01/28/2025 2:21 PM EDT Hospital Encounter [address] [address] Syl Mcdonough MD Discharge Disposition: Home or Self Care () 12/10/2024 Prep for Case [facility] [address] [place] [id number] Pipe Fitter Supervisor: Syl Edwards MD from Last 3 Months Allergies No known active allergies Medications amLODIPine (NORVASC) 10 mg tablet Take 10 mg by mouth once a day. 2 Active atorvastatin (LIPITOR) 10 mg tablet Take 10 mg by mouth nightly. 2 Active blood pressure test kit-large kit USE TO CHECK BLOOD PRESSURE DAILY, sentado en loc silla con ambos pies planos en el piso 2 Active Antacid, calcium carbonate, 200 mg calcium (500 mg) chewable tablet Chew and swallow 1 tablet by mouth once a day. 2 Active Vitamin D3 50 mcg (2,000 unit) capsule Take 1 capsule by mouth once a day. 2 Active FeroSuL 325 mg (65 mg iron) tablet Take 1 tablet by mouth every 48 hours. 2 Active hydroCHLOROthia zide (HYDRODIURIL) 25 mg tablet Take 25 mg by mouth once a day. 2 Active valsartan (DIOVAN) 320 mg tablet Take 320 mg by mouth once a day. 2 Active polyethylene glycol (GoLYTELY) solution Refer to prep instructions provided by your physician. Add 1 gallon (128 ounces) of water to the GoLytely/Colyte/ Nulytely container and refrigerate. At 4 PM the day before your procedure, drink one 8-ounce glass of the bowel preparation solution every 10 - 15 minutes until half the container is empty, about 8 glasses. Five (5) hours before your procedure drink one 8-ounce glass of the bowel preparation solution every 10 - 15 minutes until the entire container is empty. Continue to drink clear non-alcoholic liquids up until 2 hours prior to your procedure. 4000 mL 5 03/10/20 25 Active Active Problems Problem Noted Date Diagnosed Date Palpitations 11/19/2021 Essential hypertension 11/19/2021 Social History Tobacco Use Types Packs/Day Years Used Date Smoking Tobacco: Never Smokeless Tobacco: Never Tobacco Cessation:Counseling Given: Not Answered Alcohol Use Standard Drinks/Week Comments Yes 0 (1 standard drink = 0.6 oz pur e alcohol) occ. 1 month Comments No Sex and Gender Information Value Date Recorded Sex Assigned at Female 11/28/2023 9:47 AM EDT Legal Sex Female 3:13 PM EDT Gender Identity Female 11/02/2024 10:56 AM EDT Sexual Orientation Not on file Last Filed Vital Signs Vital Sign Reading Time Taken Comments Blood Pressure 146/85 01/28/2025 2:01 PM EDT Pulse 65 01/28/2025 2:01 PM EDT Temperature 36.6 C (97.9 F) 01/28/2025 1:46 PM EDT Respiratory Rate 15 01/28/2025 2:01 PM EDT Oxygen Saturation 97% 01/28/2025 2:01 PM EDT Inhaled Oxygen Concentration - - Weight 104.3 kg (230 lb) 01/28/2025 12:21 PM EDT Height 160 cm (5' 3 ) 01/28/2025 12:21 PM EDT Body Mass Index 40.74 01/28/2025 12:21 PM EDT Plan of Treatment Not on file Procedures * Due to [facility] law, this organization might not be sharing negative HIV tests. Procedure Name Priority Date/Time Associated Diagnosis Comments OH COLONOSCOPY FLX DX W/COLLJ SPEC WHEN PFRMD 01/28/2025 1:10 PM EDT Hematochezia COLONOSCOPY 01/28/2025 from Last 3 Months Results * Due to [place] 66. [employer] law, this organization might not be sharing negative HIV tests. * COLONOSCOPY (01/28/2025) Narrative Procedure Note Syl Mcdonough MD - 01/28/2025 1:01 PM EDT [facility] Endoscopy - [address] [place] [address] Endoscopy Center Patient Name: Reyna Trinidad Procedure Date: 51:01 PM Date of : 1965 Admit Type: Outpatient Age: 59 Room: [facility] 03 Gender: Female Note Status: Finalized Attending MD: Syl Mcdonough MD Procedure: Colonoscopy Indications: Hematochezia Providers: Syl Mcdonough MD Referring MD: Charmaine Cheney (Referring MD) Requesting Provider: Medicines: Fentanyl 125 micrograms IV, Midazolam 5 mg IV Procedure: Pre-Anesthesia Assessment: - Prior to the procedure, a History and Physicalwas performed, and patient medications and allergieswere reviewed. The patient is competent. The risks and benefits of the procedure and the sedation optionsand risks were discussed with the patient. Allquestions were answered and informed consent was obtained. Patient identification and proposed procedure were verified by the physician, the nurse and the airplane technician in the pre-procedure area in theprocedure room in the endoscopy suite. Mental Status Examination: normal. Prophylactic Antibiotics: The patient does not require prophylactic antibiotics. Prior Anticoagulants: The patient has taken no anticoagulant or antiplatelet agents. Afterreviewing the risks and benefits, the patient was deemed in satisfactory condition to undergo the procedure.The anesthesia plan was to use moderate sedation / analgesia (conscious sedation). Immediately priorto administration of medications, the patient was re-assessed for adequacy to receive sedatives. The heart rate, respiratory rate, oxygen saturations, blood pressure, adequacy of pulmonary ventilation,and response to care were monitored throughout the procedure. The physical status of the patient was re-assessed after the procedure. After I obtained informed consent, the scope was passed under direct vision. Throughout theprocedure, the patient's blood pressure, pulse, and oxygen saturations were monitored continuously. The Colonoscope was introduced through the anus and advanced to the terminal ileum. The colonoscopy was performed without difficulty. The patient tolerated the procedure well. The quality of the bowel preparation was good. Findings: The terminal ileum appeared normal. Non-bleeding internal hemorrhoids were found. The hemorrhoids weresmall. The exam was otherwise without abnormality. Impression: - The examined portion of the ileum was normal. - Non-bleeding internal hemorrhoids. - The examination was otherwise normal. - No specimens collected. Recommendation: - Resume previous diet. - Continue present medications. - Repeat colonoscopy in 10 years for screening purposes. Syl Mcdonough MD 01/28/2025 1:41:23 PM This report has been signed electronically. Number of Addenda: 0 Note Initiated On: 01/28/2025 1:01 PM Estimated Blood Loss: Estimated blood loss: none. us Syl Mcdonough MD PROVATION PROCEDURES Final Resul t from Last 3 Months Insurance [facility] Care Teams Internet Sales Consultant Relationship Specialty Start Date End Date Charmaine Cheney [address] [place] [id number] PCP - General Family Medicine 10/25/22
== END 2025-03-04 15:05 | disposition home or self-care (01) ==
LOC: HO.MAMMO 15:04
PROVIDERS: PCP Registered Nurse; Visit Provider Registered Nurse
DX: Z12.31 Encounter for screening mammogram for malignant neoplasm of breast (principal)
CPT/HCPCS: 77063; 77067

== ENCOUNTER → 2025-03-04 15:30 | Outpatient (BNV) | payer SELFPAY | PROVIDERS: PCP Registered Nurse; Visit Provider Internal Medicine | DX: Z12.31 Encounter for screening mammogram for malignant neoplasm of breast (principal) | CPT/HCPCS: 77063; 77067 ==

== ENCOUNTER 2025-07-01 13:44 | Outpatient (REF) | payer SELFPAY ==
--- OUTSIDE RECORDS SUMMARY | 2025-07-01 13:00 | XMS_ITS | Encounter Summary ---
Author Organization [employer] Address [address] [place] [address] [address] [address] Care Team Providers Care Compensation/Benefits Specialist Name Role Phone [facility] Primary Care Provider [phone] Reason for Visit * Reason Comments Follow-up Encounter Details Date Type Department Care Team ([facility] Contact Info) Description 07/01/2025 1:00 PM EST Office Visit [facility] MEDICINE [address], [place] [phone] [facility] [address] [place] [address] Dyspepsia (Primary Dx); Primary hypertension; Dietary counseling; Exercise counseling; Class 3 severe obesity due to excess calories with serious comorbidity and body mass index (BMI) of 40.0 to 44.9 in adult (HCC); Encounter for immunization Social History Tobacco Use Types Packs/Day Years Used Date Smoking Tobacco: Never Smokeless Tobacco: Never Tobacco Cessation:Counseling Given: Not Answered Alcohol Use Standard Drinks/Week Comments Yes 0 (1 standard drink = 0.6 oz pur e alcohol) occasionally Depression Answer Date Recorded Patient Health Questionnaire-9 Score 0 07/01/2025 Patient Health Questionnaire-9 Score 0 07/01/2025 Last PHQ-9: Questionnaire Data Not on file 1 09/01/2024 Housing Stability Answer Date Recorded What is your housing situation today? I have del moreno 06/17/[address] you li ve. Do you have problems with any of the following? Pests such as bugs, ants, or mice 06/17/2025 Food Insecurity Answer Date Recorded Within the past 12 months, y ou worried that your food would run out before you got money to buy more: Never True 06/17/2025 Within the past 12 months,th e food you bought just didn't last and you didn't have enough money to get more: Never True Transportation Answer Date Recorded In the past 12 months, has l ack of transportation kept you from medical appts, meetings, work or from getting things needed for daily living? Yes, it has kept me from non-medical meetings, work, or getting things that I need 06/17/2025 Utilities Answer Date Recorded In the past 12 months, has t he electric, gas, oil or water company threatened to shut off services in your home? No 06/17/2025 Depression Answer Date Recorded Patient Health Questionnaire-2 Score 0 07/01/2025 Internet Access Answer Date Recorded Internet Access Q1 Yes 06/17/2025 Internet Access Q2 Not on file 06/17/2025 Comments Unknown Sex and Gender Information Value Date Recorded Sex Assigned at Female 05/24/2022 10:40 AM EDT Legal Sex Female 10:40 AM EDT Gender Identity Female 05/24/2022 10:40 AM EDT Sexual Orientation Don't know 05/24/2022 10 :40 AM EDT documented as of this encounter Last Filed Vital Signs Vital Sign Reading Time Taken Comments Blood Pressure 140/98 07/01/2025 1:01 PM EST Pulse 72 07/01/2025 1:01 PM EST Temperature 36.6 C (97.8 F) 07/01/2025 1:01 PM EST Respiratory Rate 20 07/01/2025 1:01 PM EST Oxygen Saturation 100% 07/01/2025 1:01 PM EST Inhaled Oxygen Concentration - - Weight 108 kg (237 lb 3.2 oz) 07/01/2025 1:01 PM EST Height 162.6 cm (5' 4 ) 07/01/2025 1:01 PM EST Body Mass Index 40.72 07/01/2025 1:01 PM EST documented in this encounter Functional Status * Over the past 2 weeks, how often have you been bothered by any of the following problems? Question Answer Date of Assessment Author Patient Health Questionnaire-2 Score 0 07/01/2025 1:02 PM EST Joya Nuñez MA * Little interest or pleasure in doing things Answer Date of Assessment Author Not at all 07/01/2025 1:02 PM Joya David MA * Feeling down, depressed, or hopeless Answer Date of Assessment Author Not at all 07/01/2025 1:02 PM Joya David MA * Trouble falling or staying asleep, or sleeping too much Answer Date of Assessment Author Not at all 07/01/2025 1:02 PM Joya David MA * Feeling tired or having little energy Answer Date of Assessment Author Not at all 07/01/2025 1:02 PM Joya David MA * Poor appetite or overeating Answer Date of Assessment Author Not at all 07/01/2025 1:02 PM Joya David MA * Feeling bad about yourself - or that you are a failure or have let yourself or your family down Answer Date of Assessment Author Not at all 07/01/2025 1:02 PM Joya David MA * Trouble concentrating on things, such as reading the newspaper or watching television Answer Date of Assessment Author Not at all 07/01/2025 1:02 PM Joya David MA * Moving or speaking so slowly that other people could have noticed? Or the opposite - being so fidgety or restless that you have been moving around a lot more than usual. Answer Date of Assessment Author Not at all 07/01/2025 1:02 PM Joya David MA * Thoughts that you would be better off or hurting yourself in some way Answer Date of Assessment Author Not at all 07/01/2025 1:02 PM Joya David MA * Patient Health Questionnaire-9 Score Answer Date of Assessment Author 0 07/01/2025 1:02 PM Joya David MA * Over the last 2 weeks, how often have you been bothered by any of the following problems? Question Answer Date of Assessment Author Feeling nervous, anxious, or on edge 0 07/01/2025 1:02 PM Joya Natoin MA Not being able to stop or control worrying 0 07/01/2025 1:02 PM EST Joya Nuñez MA Worrying too much about different things 0 07/01/2025 1:02 PM EST Joya Nuñez MA Trouble relaxing 0 07/01/2025 1:02 PM EST Joya Ruiz MA Being so restless that it is hard to sit still 0 07/01/2025 1:02 PM EST Joya Nuñez MA Becoming easily annoyed or irritable 0 07/01/2025 1:02 PM EST Joya Nuñez MA Feeling afraid as if something awful might happen 0 07/01/2025 1:02 PM EST Joya Esparza MA YAYO-7 Total Score 0 07/01/2025 1:02 PM EST Joya Nuñez MA documented as of this encounter Plan of Treatment Upcoming Encounters Date Type Department Care Team (Late st Contact Info) Description 10/14/2025 3:00 PM EDT Office Visit [facility] OPTOMETRY [address] [place] [address] Tammy Mercado, OD [address] [place] [address] Scheduled Orders Name Type Priority Associated Diagnoses Orde r Schedule Helicobacter pylori Antigen, EIA, Stool Lab Routine Dyspepsia Expected: 07/01/2025, Expires: 07/01/2026 documented as of this encounter Procedures Procedure Name Priority Date/Time Associated Diagnosis Comments CBC WITH AUTO DIFFERENTIAL Routine 07/01/2025 1:50 PM EST Dyspepsia HEMOGLOBIN A1C Routine 07/01/2025 1:50 PM EST Class 3 severe obesity due to excess calories with serious comorbidity and body mass index (BMI) of 40.0 to 44.9 in adult (HCC) LIPID PANEL, STANDARD Routine 07/01/2025 1:50 PM EST Primary hypertension COMPREHENSIVE METABOLIC PANEL Routine 07/01/2025 1:50 PM EST Dyspepsia documented in this encounter Results * Hemoglobin A1c (07/01/2025 1:50 PM EST) Hemoglobin A1c 6.0 <6.0 % [facility] Comment:Hemoglobin A1C Refer ence Range Adults: 4.8 - 6.0 % Non diabetic: < 6.0 % Goal: < 7.0 %Additional Action Suggested: > 8.0 %Note: Hemoglobin A1c results are invalid for patients with abnormal amounts of HbF. Blood transfusions may impact the HbA1c concentration in the patient sample. Estimated Average Glucose 126 mg/dL [facility] Comment:eAG = Estimated ave rage glucose which is %A1C expressed asaverage glucose, using the formula of the Z3R-JewiosfXanmiun Glucose study (ADAG), Diabetes Care, Vol.31,#8,Feb. 2007 Blood Venous blood specimen / Unknown 07/01/2025 1:50 PM EST 07/01/2025 4:07 PM EST [facility] SENIOR ACCOUNTING CLERK LAB BLOOD ORDERABLES Final Re sult [facility] [address] [place] [phone] * (ABNORMAL) CBC auto differential (07/01/2025 1:50 PM EST) White Blood Count 5.1 4.8 - 10.8 X10*3/uL [facility] Red Blood Count 3.93(L) 4.20 - 5.50 X10*6/uL [facility] Hemoglobin 11.2(L) 12.0 - 16.0 g/dl [facility] Hematocrit 35.1(L) 37.0 - 47.0 % [facility] Mean Corpuscular Volume 89.3 80.0 - 98.0 fL [facility] Mean Corpuscular Hemoglobin 28.5 27.0 - 33.0 pg [facility] Mean Corpuscular HGB Conc 31.9 31.0 - 35.0 g/dl [facility] Red Cell Distribution Width 13.3 11.0 - 16.0 % [facility] Platelet Count 293 160 - 400 X10*3/uL [facility] Mean Platelet Volume 11.1 9.4 - 12.3 fL [facility] Neutrophils Percent Auto 43.8(L) 45 - 73 % [facility] Imm Gran Pct Auto 0.2 0.0 - 0.4 % [facility] Lymphocytes Percent Auto 44.6(H) 20 - 40 % [facility] Monocytes Percent Auto 9.2 2 - 11 % [facility] Eosinophils Percent Auto 1.8 0 - 4 % [facility] Basophils Percent Auto 0.4 0 - 2 % [facility] NRBC Pct Auto 0.0 0.0 - 0.2 /100WBC [facility] Neutrophils Absolute Auto 2.2 2.0 - 8.3 x10*3/uL [facility] Imm Gran Abs Auto 0.01 0.00 - 0.03 X10*3/uL [facility] Lymphocytes Absolute Auto 2.3 1.2 - 4.9 X10*3/uL [facility] Monocytes Absolute Auto 0.5 0.1 - 1.2 X10*3/uL [facility] Eosinophils Absolute Auto 0.1 0.0 - 0.4 X10*3/uL [facility] Basophils Absolute Auto 0.0 0.0 - 0.2 X10*3/uL [facility] NRBC Abs Auto 0.000 0.0 - 0.012 X10*3/uL [facility] Blood Venous blood specimen / Unknown 07/01/2025 1:50 PM EST 07/01/2025 4:07 PM EST [facility] SENIOR ACCOUNTING CLERK LAB BLOOD ORDERABLES Final Re sult [facility] [address] [place] [phone] * (ABNORMAL) Lipid Panel, Standard (07/01/2025 1:50 PM EST) Triglycerides 109 <150 mg/dL [facility] Comment:Desirable Triglyceri de: less than 150 mg/dLBorderline High Triglyceride 150-199 mg/dLHigh Triglyceride: 200-499 mg/dLVery High Triglyceride: greater than or equal to 5OO mg/dL Cholesterol 203(H) <200 mg/dL [facility] Comment:Desirable Cholestero l: less than 200 mg/dLBorderline High Cholesterol: 200-239 mg/dLHigh Cholesterol: greater than 239 mg/dL LDL Cholesterol Calculated 126(H) <100 mg/dL [facility] Comment:Desirable LDL: less than 100 mg/dLNear Optimal/Above Optimal LDL: 110- 129 mg/dLBorderline High LDL: 130-159 mg/dLHigh LDL: 160-189 mg/dLVery High LDL: greater than or equal to 190 mg/dL HDL Cholesterol 56 >40 mg/dL [facility] Comment:Desirable HDL: great er than 40 mg/dL Note: This HDL assay may give artificially low results in patients with liver disease. Blood Venous blood specimen / Unknown 07/01/2025 1:50 PM EST 07/01/2025 4:07 PM EST [facility] LAB BLOOD ORDERABLES Final Re sult [facility] [address] [place], [place] [phone] * (ABNORMAL) Comprehensive Metabolic Panel (07/01/2025 1:50 PM EST) Sodium 141 135 - 145 mmol/L [facility] Potassium 4.1 3.3 - 5.1 mmol/L [facility] Chloride 108 96 - 108 mmol/L [facility] Carbon Dioxide 27 22 - 29 mmol/L [facility] Anion Gap 10(L) 12 - 20 [facility] Urea Nitrogen (BUN) 14 9 - 16 mg/dL [facility] Creatinine, Serum 0.72 0.5 - 1.4 mg/dL [facility] Estimated Glomerular Filt Rate >60 [facility] Comment:Chronic Kidney Disea se: Estimated GFR < 60 mL/min/[id number] Kidney Disease: Estimated GFR < 15 mL/min/1.73m2 Glucose 83 60 - 115 mg/dL [facility] Calcium 9.1 8.4 - 10.2 mg/dL [facility] Bilirubin, Total 0.1 0.0 - 1.0 mg/dL [facility] Aspartate Amino Transferase 24 5 - 31 U/L [facility] Alanine Aminotransferase 16 0 - 31 U/L [facility] Total Protein 7.2 6.5 - 8.0 g/dL [facility] Albumin Level 4.2 3.5 - 5.0 g/dL [facility] Alkaline Phosphatase 63 39 - 117 U/L [facility] Blood Venous blood specimen / Unknown 07/01/2025 1:50 PM EST 07/01/2025 4:07 PM EST [facility] LAB BLOOD ORDERABLES Final Re sult [facility] [address] [place] [phone] documented in this encounter Visit Diagnoses Diagnosis Dyspepsia- Primary Dyspepsia and other specified disorders of function of stomach Primary hypertension Unspecified essential hypertension Dietary counseling Dietary surveillance and counseling Exercise counseling Class 3 severe obesity due to excess calories with serious comorbidity and body mass index (BMI) of 40.0 to 44.9 in adult (HCC) Encounter for immunization documented in this encounter Additional Health Concerns Assessment Noted Time PHQ-9 Depression Total Score: 0 07/01/20 1:02 PM EST documented as of this encounter Care Teams Compensation/Benefits Specialist Relationship Specialty Start Date End Date Ellie Suh FNP [address] [place] [phone] PCP - General Family Medicine 10/08/24 documented as of this encounter
[2025-07-01 16:17] LABS: MANUAL DIFF FLAG NO
[2025-07-01 16:23] LABS: Hematocrit 35.1 % (37.0-47.0); Hemoglobin 11.2 g/dl (12.0-16.0); Imm Gran Abs Auto 0.01 X10*3/uL (0.00-0.03); Imm Gran Pct Auto 0.2 % (0.0-0.4); Lymphocytes Absolute Auto 2.3 X10*3/uL (1.2-4.9); Mean Corpuscular HGB Conc 31.9 g/dl (31.0-35.0); Mean Corpuscular Hemoglobin 28.5 pg (27.0-33.0); Mean Corpuscular Volume 89.3 fL (80.0-98.0); NRBC Abs Auto 0.000 X10*3/uL (0.0-0.012); NRBC Pct Auto 0.0 /100WBC (0.0-0.2); Platelet Count 293 X10*3/uL (160-400); Red Blood Count 3.93 X10*6/uL (4.20-5.50); White Blood Count 5.1 X10*3/uL (4.8-10.8)
[2025-07-01 16:36] LABS: Alanine Aminotransferase 16 U/L (0-31); Albumin Level 4.2 g/dL (3.5-5.0); Alkaline Phosphatase 63 U/L (39-117); Anion Gap 10 (12-20); Aspartate Amino Transferase 24 U/L (5-31); Blood Urea Nitrogen 14 mg/dL (9-16); Calcium 9.1 mg/dL (8.4-10.2); Carbon Dioxide 27 mmol/L (22-29); Chloride 108 mmol/L (96-108); Cholesterol 203 mg/dL (<200); Estimated Glomerular Filt Rate > 60; HDL Cholesterol 56 mg/dL (>40); Potassium 4.1 mmol/L (3.3-5.1); Sodium 141 mmol/L (135-145); Total Protein 7.2 g/dL (6.5-8.0); Triglycerides 109 mg/dL (<150)
--- OUTSIDE RECORDS SUMMARY | 2025-07-01 22:32 | XMS_ITS | Clinical Summary ---
Author Organization [employer] Address [address] [facility] [address] [place] [address] Care Team Providers Care Water Plant Operator Name Role Phone Ellie Suh HOUSING COURT JUDGE Primary Care Provider [phone] Allergies No known active allergies Medications Blood Pressure Monitoring (Omron 3 Series BP Monitor) device USE TO CHECK BLOOD PRESSURE EVERY DAY DIRECTED 2 Active atorvastatin (Lipitor) 40 MG tabletIndications: Mixed hyperlipidemia Take 1 tablet (40 mg) by mouth in the morning. 30 tablet 11 3 Active acetaminophen (Tylenol) 500 MG tablet Take 2 tablets (1,000 mg) by mouth every 6 (six) hours if needed for moderate pain or fever for up to 25 doses. 40 tablet 4 Active tiZANidine (Zanaflex) 2 MG tablet Take 1 tablet (2 mg) by mouth every 6 (six) hours if needed for muscle spasms for up to 10 days. 30 tablet 4 Active famotidine (Pepcid) 20 MG tabletIndications: Abdominal pain, epigastric Take 1 tablet (20 mg) by mouth 2 times daily. 60 tablet 1 4 Active hydroCHLOROthiazid e (HYDRODiuril) 25 MG tabletIndications: Primary hypertension Take 1 tablet by mouth every day 90 tablet 5 Active valsartan (Diovan) 320 MG tabletIndications: Primary hypertension TAKE 1 TABLET BY MOUTH EVERY DAY 90 tablet 5 Active calcium carbonate (Calcium 600) 600 MG tabletIndications: Osteopenia of necks of both femurs Take 1 tablet (600 mg) by mouth with breakfast and with evening meal. 180 tablet 3 5 01/17/20 26 Active cholecalciferol (Vitamin D-3) 50 MCG (2000 UT) capsuleIndications :Osteopenia of necks of both femurs Take 1 capsule (50 mcg) by mouth Once per day. 90 capsule 3 5 Active omeprazole OTC (PriLOSEC OTC) 20 MG EC tabletIndications: Dyspepsia Take 1 tablet (20 mg) by mouth before breakfast. Do not crush, chew, or split. 30 tablet 11 5 07/01/20 26 Active Blood Pressure kitIndications:Stephanie jose luis hypertension Use as directed 1 kit 5 Active Active Problems Problem Noted Date Diagnosed [...] that would accept her insurance is in [facility] and transportation is very difficult for her Fatty liver 03/05/2023 Overview (03/05/2023): Notes on Abd US 01/31/23 Increased hepatic echogenicity which can be seen in the setting of hepatic steatosis or underlying liver disease. Liver enzymes WNL 08/30/22 Lipid panel elevated Assessment & Plan (03/05/2023 [...] cleaning. H. pylori infection 01/05/2023 Overview (01/05/2023): Positive urea breath test on 12/31/22 Started on Quad therapy with MARIE due [...] ventricular hypertrophy 08/23/2022 Overview (08/23/2022): Evaluated by [facility]iology Has followup appt 11/19/22 Assessment & Plan (02/13/2023 7:12 PM EDT): Cleared by [facility]iology. No f/u needed Osteopenia 11/09/2021 Overview [...] Encounters Date Type Department Care Team Description 07/01/2025 1:00 PM EST Office Visit [facility] [address] [place] [phone] Ellie Suh FNP Dyspepsia (Primary Dx); Primary hypertension; Dietary counseling; Exercise counseling; Class 3 severe obesity due to excess calories with serious comorbidity and body mass index (BMI) of 40.0 to 44.9 in adult (HCC); Encounter for immunization 07/01/2025 Travel 06/17/2025 Patient Outreach [facility] [address] [place] [phone] Ellie Suh FNP Care Coordination (CHW outreach for SDOH housing search-referral completed ) 06/17/2025 Patient Outreach [facility] [address] [place] [phone] Ellie Suh FNP Pre-visit Planning (SDOH screening negative and tobacco screening negative) 05/15/[address] [phone] Ellie Suh FNP dec recall from Last 3 Months Immunizations Immunization Administration Dates Next Due Hep B, adult 02/17/2023 Influenza, seasonal, injectable, preservative fr ee 07/01/2025 Pneumococcal Conjugate PCV 20 01/14/2025 Tdap 01/14/2025 Family History Medical History Relation Name Comments [...] Mass Index 40.72 07/01/2025 1:01 PM EST Plan of Treatment Upcoming Encounters Date Type Department Care Team (Late st Contact Info) Description 10/14/2025 3:00 PM EDT Office Visit [facility] [address] [place] [address] Rogelio, Tammy, OD [address] [place] [address] Health Maintenance Due Date Last Done Comments CT Colonography 1967 FIT DNA/Cologuard 1967 FIT 1967 FOBT 1967 Sigmoidoscopy 1967 Hepatitis A Vaccines (1 of 2 - Risk 2-dose series) 1986 RSV Patients and Patients Aged 60 years or older (1 - Risk 50-74 years 1-dose series) 2017 Zoster Vaccines (1 of 2) 2017 Hepatitis B Vaccines (2 of 3 - 19+ 3-dose series) 03/17/2023 02/17/2023 COVID-19 Vaccine ( - season) 2025 Pap Smear 09/20/2025 09/20/2022 Mammogram 03/04/2026 03/04/2025, 11/03/2021 SDOH Screening 06/17/2026 06/17/2025 Alcohol/Substance Use Screening 07/01/2026 07/01/2025 Depression Screening 07/01/2026 07/01/2025, 07/01/20 25 Diabetes: Hemoglobin A1C 07/01/2026 025, 08/30/2022, 10/01/2021 Disability Screening 07/01/2026 07/01/2025 Tobacco Screening 07/01/2026 07/01/2025 Cervical Cancer Screening 09/20/2027 HPV/Cotest 09/20/2027 09/20/2022 Lipid Panel 07/01/2030 07/01/2025, 0701/2023, 08/30/2022, Additional history exists DTaP/Tdap/Td Vaccines (2 - Td or Tdap) 01/14/2035 01/14/2025 Colonoscopy 01/28/2035 01/28/2025, 01/28/2025 Colorectal Cancer Screening 01/28/2035 HIV Screening Completed 10/01/2021 Hepatitis C Screening Completed 02/17/2023, 022 Pneumococcal Vaccine: 50+ Years Completed 01/14/2025 Influenza Vaccine Completed 07/01/2025 HIB Vaccines Aged Out No longer eligi ble based on patient's age to complete this topic HPV Vaccines Aged Out No longer eligi ble based on patient's age to complete this topic IPV Vaccines Aged Out No longer eligi ble based on patient's age to complete this topic Meningococcal B Vaccine Aged Out No l onger eligible based on patient's age to complete [...] Procedure Name Priority Date/Time Associated Diagnosis Comments HEMOGLOBIN A1C Routine 07/01/2025 1:50 PM EST Class 3 severe obesity due to excess calories with serious comorbidity and body mass index (BMI) of 40.0 to 44.9 in adult (HCC) CBC WITH AUTO DIFFERENTIAL Routine 07/01/2025 1:50 PM EST Dyspepsia LIPID PANEL, STANDARD Routine 07/01/2025 1:50 PM EST Primary hypertension COMPREHENSIVE METABOLIC PANEL Routine 07/01/2025 1:50 PM EST Dyspepsia BI MAMMOGRAM SCREENING TOMOSYNTHESIS BILATERAL Routine 03/04/2025 3:07 PM EDT Encounter for screening mammogram for breast cancer COLONOSCOPY Routine 01/28/2025 12:41 PM EDT HEPATITIS PANEL, GENERAL Routine 02/17/2023 10:17 AM EDT Fatty liver THINPREP IMAGING PAP AND HPV MRNA E6/E7 WITH REFLEX TO HPV 16,18/45 Routine 09/20/2022 3:11 PM EST Pap smear for cervical cancer screening HIV 1/2 ANTIGEN/ANTIBODY, FOURTH GENERATION W/RFL Routine 10/01/2021 10:50 AM EST from Last 3 Months or Most Recently Relevant to Health Maintenance Results * (ABNORMAL) CBC auto differential (07/01/2025 1:50 PM EST) White Blood Count 5.1 4.8 - 10.8 X10*3/uL [facility] Red Blood Count 3.93(L) 4.20 - 5.50 X10*6/uL [facility] Hemoglobin 11.2(L) 12.0 - 16.0 g/dl [facility] Hematocrit 35.1(L) 37.0 - 47.0 % [facility] Mean Corpuscular Volume 89.3 80.0 - 98.0 fL [facility] Mean Corpuscular Hemoglobin 28.5 27.0 - 33.0 pg [facility] Mean Corpuscular HGB Conc 31.9 31.0 - 35.0 g/dl [facility] Red Cell Distribution Width 13.3 11.0 - 16.0 % [facility] Platelet Count 293 160 - 400 X10*3/uL [facility] Mean Platelet Volume 11.1 9.4 - 12.3 fL [facility] Neutrophils Percent Auto 43.8(L) 45 - 73 % [facility] Imm Gran Pct Auto 0.2 0.0 - 0.4 % [facility] Lymphocytes Percent Auto 44.6(H) 20 - 40 % [facility] Monocytes Percent Auto 9.2 2 - 11 % [facility] Eosinophils Percent Auto 1.8 0 - 4 % [facility] Basophils Percent Auto 0.4 0 - 2 % [facility] NRBC Pct Auto 0.0 0.0 - 0.2 /100WBC [facility] Neutrophils Absolute Auto 2.2 2.0 - 8.3 x10*3/uL [facility] Imm Gran Abs Auto 0.01 0.00 - 0.03 X10*3/uL [facility] Lymphocytes Absolute Auto 2.3 1.2 - 4.9 X10*3/uL [facility] Monocytes Absolute Auto 0.5 0.1 - 1.2 X10*3/uL [facility] Eosinophils Absolute Auto 0.1 0.0 - 0.4 X10*3/uL [facility] Basophils Absolute Auto 0.0 0.0 - 0.2 X10*3/uL [facility] NRBC Abs Auto 0.000 0.0 - 0.012 X10*3/uL [facility] Blood Venous blood specimen / Unknown 07/01/2025 1:50 PM EST 07/01/2025 4:07 PM EST [facility] LAB BLOOD ORDERABLES Final Re sult [facility] [address] [place] [phone] * Hemoglobin A1c (07/01/2025 1:50 PM EST) Hemoglobin A1c 6.0 <6.0 % [facility] Comment:Hemoglobin A1C Refer ence Range Adults: 4.8 - 6.0 % Non diabetic: < 6.0 % Goal: < 7.0 %Additional Action Suggested: > 8.0 %Note: Hemoglobin A1c results are invalid for patients with abnormal amounts of HbF. Blood transfusions may impact the HbA1c concentration in the patient sample. Estimated Average Glucose 126 mg/dL [facility] Comment:eAG = Estimated ave rage glucose which is %A1C expressed asaverage glucose, using the formula of the T3H-WxlwynuBkkqrdp Glucose study (ADAG), Diabetes Care, Vol.31,#8,2007 Blood Venous blood specimen / Unknown 07/01/2025 1:50 PM EST 07/01/2025 4:07 PM EST [facility] LAB BLOOD ORDERABLES Final Re sult Performing Organization Address [facility] de Phone Number [facility] [address] [place] [phone] * (ABNORMAL) Lipid Panel, Standard (07/01/2025 1:50 PM EST) Triglycerides 109 <150 mg/dL [facility] Comment:Desirable Triglyceri de: less than 150 mg/dLBorderline High Triglyceride 150-199 mg/dLHigh Triglyceride: 200-499 mg/dLVery High Triglyceride: greater than or equal to 5OO mg/dL Cholesterol 203(H) <200 mg/dL [facility] Comment:Desirable Cholestero l: less than 200 mg/dLBorderline High Cholesterol: 200-239 mg/dLHigh Cholesterol: greater than 239 mg/dL LDL Cholesterol Calculated 126(H) <100 mg/dL [facility] Comment:Desirable LDL: less than 100 mg/dLNear Optimal/Above Optimal LDL: 110- 129 mg/dLBorderline High LDL: 130-159 mg/dLHigh LDL: 160-189 mg/dLVery High LDL: greater than or equal to 190 mg/dL HDL Cholesterol 56 >40 mg/dL [facility] Comment:Desirable HDL: great er than 40 mg/dL Note: This HDL assay may give artificially low results in patients with liver disease. Blood Venous blood specimen / Unknown 07/01/2025 1:50 PM EST 07/01/2025 4:07 PM EST [facility] LAB BLOOD ORDERABLES Final Re sult Performing Organization Address [facility] Co de Phone Number [facility] [address] [place] [phone] * (ABNORMAL) Comprehensive Metabolic Panel (07/01/2025 1:50 PM EST) Sodium 141 135 - 145 mmol/L [facility] Potassium 4.1 3.3 - 5.1 mmol/L [facility] Chloride 108 96 - 108 mmol/L [facility] Carbon Dioxide 27 22 - 29 mmol/L [facility] Anion Gap 10(L) 12 - 20 [facility] Urea Nitrogen (BUN) 14 9 - 16 mg/dL [facility] Creatinine, Serum 0.72 0.5 - 1.4 mg/dL [facility] Estimated Glomerular Filt Rate >60 [facility] Comment:Chronic Kidney Disea se: Estimated GFR < 60 mL/min/1.90w7Iektlu Kidney Disease: Estimated GFR < 15 mL/min/1.73m2 Glucose 83 60 - 115 mg/dL [facility] Calcium 9.1 8.4 - 10.2 mg/dL [facility] Bilirubin, Total 0.1 0.0 - 1.0 mg/dL [facility] Aspartate Amino Transferase 24 5 - 31 U/L [facility] Alanine Aminotransferase 16 0 - 31 U/L [facility] Total Protein 7.2 6.5 - 8.0 g/dL [facility] Albumin Level 4.2 3.5 - 5.0 g/dL [facility] Alkaline Phosphatase 63 39 - 117 U/L [facility] Blood Venous blood specimen / Unknown 07/01/2025 1:50 PM EST 07/01/2025 4:07 PM EST [facility] HOUSING COURT JUDGE LAB BLOOD ORDERABLES Final Re sult [facility] [address] [place] [phone] * BI Mammogram Screening Tomosynthesis Bilateral (03/04/2025 3:07 PM EDT) Anatomical Region Laterality Modality Breast Bilateral Mammography 03/04/2025 3:07 PM EDT Narrative 03/12/2025 10:12 AM EDT [address] [place] [address] Mammography Report Signed Patient: Reyna Magana MR#: [id number] : 1965 Acct:[id number] Age/Sex: 59 / F ADM Date: 03/04/25 Loc: HO.MAMMO Attending Dr: Ellie Suh HOUSING COURT JUDGE Ordering Physician: Ellie Suh HOUSING COURT JUDGE Results: 1Nega tive Date of Service: 03/04/25 Follow Up: 1 Year From Orig ina Mammogram Procedure(s): MM tomosynthesis screening BI Accession Number(s): [id number] cc: Ellie Suh HOUSING COURT JUDGE EXAMINATION: MM SCREENING DIGITAL BREAST TOMOSYNTHESIS, BILATERAL CLINICAL INFORMATION: Screening. Asymptomatic. COMPARISON: Mammography: Baseline. TECHNIQUE: Digital breast mammography with tomosynthesis is performed in both the craniocaudal and mediolateral oblique views along with computer-aided detection (CAD). FINDINGS: There are scattered areas of fibroglandular density (ACR BI-RADS breast composition Category b). There are no significant masses, abnormal calcifications, or other abnormalities. MM/MM tomosynthesis screening BI IMPRESSION: No mammographic evidence of malignancy. ASSESSMENT: BI-RADS BI-RADS 1 - Negative RECOMMENDATION: Routine annual mammography screening. 1 year F/U This examination should not preclude the clinical evaluation of a suspicious palpable abnormality. This patient's information was entered into a reminder system with a target due date for their next mammogram. Electronically signed by: Jessica Villa DO 03/12/2025 10:10 AM EDT Dictated By: Jessica Villa DO Signed By: <Electronically signed by Jessica Villa DO in OV> 03/12/25 1010 DD/ 1507 TD/TT: 03/04/25 1537 Production Expediter: Procedure Note Donotuseinterpreter, Image - 03/12/[address] [place] [address] Mammography Report Signed Patient: Reyna MaganaMR#: [id number] : 1965Acct:[id number] Age/Sex: 59 / FADM Date: 03/04/25 Loc: HO.MAMMO Attending Dr: Ellie Suh HOUSING COURT JUDGE Ordering Physician: Ellie Suh FNPResults: 1Nega tive Date of Service: 03/04/25Follow Up: 1 Year From Orig inal Mammogram Procedure(s): MM tomosynthesis screening BI Accession Number(s): [id number] cc: Ellie Suh HOUSING COURT JUDGE EXAMINATION: MM SCREENING DIGITAL BREAST TOMOSYNTHESIS, BILATERAL CLINICAL INFORMATION: Screening. Asymptomatic. COMPARISON: Mammography: Baseline. TECHNIQUE: Digital breast mammography with tomosynthesis is performed in both the craniocaudal and mediolateral oblique views along with computer-aided detection (CAD). FINDINGS: There are scattered areas of fibroglandular density (ACR BI-RADS breast composition Category b). There are no significant masses, abnormal calcifications, or other abnormalities. MM/MM tomosynthesis screening BI IMPRESSION: No mammographic evidence of malignancy. ASSESSMENT: BI-RADS BI-RADS 1 - Negative RECOMMENDATION: Routine annual mammography screening. 1 year F/U This examination should not preclude the clinical evaluation of a suspicious palpable abnormality. This patient's information was entered into a reminder system with a target due date for their next mammogram. Electronically signed by: Jessica Villa DO 03/12/2025 10:10 AM EDT Dictated By: Jessica Villa DO Signed By: <Electronically signed by Jessica Villa DO in OV> 03/12/25 1010 DD/ 1507 TD/TT: 03/04/25 1537 Production Expediter: [facility] HOUSING COURT JUDGE IMG BI PROCEDURES Final Resul t * Colonoscopy (01/28/2025 12:41 PM EDT) Anatomical Region Laterality Modality Endoscopy Historical Provider ENDOSCOPY PROCEDURE ORDER CUONG Final Result * Hepatitis Panel, General (02/17/2023 10:17 AM EDT) Hepatitis A IgM Nonreactive Nonreactive [facility] Comment:IgM antibodies to PARDO V not detected; does not exclude earlyacute or recovered HAV infection. ~Hepatitis B Surface Antibody NONREACTIVE Nonreactive [facility] Comment:Nonreactive: < 8.00 mIU/mL Hepatitis B Core Antibody Nonreactive Nonreactive [facility] Hepatitis C Antibody Nonreactive Nonreactive [facility] Comment:Antibodies to HCV no t detected; does not exclude early acuteHCV infection. Hepatitis B Surface Ag Negative Negative [facility] Blood 02/17/2023 10:1 7 AM EDT 02/17/2023 11:18 AM EDT Charmaine Cheney HOUSING COURT JUDGE LAB BLOOD ORDERABLES Final Result [facility] [address] [place] [phone] * Thinprep TIS PAP And HPV mRNA E6/E7 With Reflex To HPV 16,18/45 (09/20/2022 3:11 PM EST) Clinical Information: None given 57 YEAR OLD FEMALE WITH LAST PAP 3 [employer] LMP: NONE GIVEN [employer] [place] [employer] Prev. PAP: NONE GIVEN [employer] Prev. BX: NO [employer] SOURCE: None given [employer] Statement Of Adequacy: SATISFACTORY FOR EVALUATION [employer] Interpretation/Re sult: [employer] Comment: Negative for intraepithelial lesion or malignancy. Atrophic pattern; predominantly parabasal cells Comment: This Pap test has been evaluated with computer assisted technology. [employer] Geospatial Scientist: [employer] Comment: BK,CT(ASCP) CT screening location: [address] (Always Message) [facility] [employer] Comment: EXPLANATORY NOTE: The Pap is a [...] HPV nRNA E6/E7 Not Detected Not Detected [employer] [place] [employer] Comment: Methodology: Senior Sales Associate-Mediated Amplification This assay detects E6/E7 viral messenger RNA (mRNA) from 14 high-risk HPV types (16,18,31,33,35,39,45,51,52,56,58,59,66,68). Cervical sources are required for HPV testing. If a vaginal source from a patient who has had a total hysterectomy with removal of cervix was submitted, please contact the testing laboratory for alternative testing options. For additional information, please refer to http://education.Skataz/faq/JVC655p1 (This link if provided for information/ educational purposes only.) Genital fluid specimen (specimen) 09/20/2022 3:11 PM EST 09/21/2022 8:56 PM EST us Charmaine Cheney [facility] PATHOLOGY ORDERABLES F inal Result [facility] [address], [facility] [place] [address] [employer] [facility] [address], ([address]) [place] [phone] * HIV 1/2 ANTIGEN/ANTIBODY,FOURTH GENERATION W/RFL (10/01/2021 10:50 AM EST) HIV-1/2 ANTIGEN AND ANTIBODIES, 4TH GENERATION W/ REFLEX NON-REACT JAGDEEP NON-REACT JAGDEEP [facility] Comment: HIV-1 antigen and HIV-1/HIV-2 antibodies were not detected. There is no laboratory evidence of HIV infection. PLEASE NOTE: This information has been disclosed to you from records whose confidentiality may be protected by state law. If your state requires such protection, then the state law prohibits you from making any further disclosure of the information without the specific written consent of the person to whom it pertains, or as otherwise permitted by law. A general authorization for the release of medical or other information is NOT sufficient for this purpose. For additional information please refer to http://education.Or[employer] Systems.MakeLeaps/faq/AOT553 (This link is being provided for informational/ educational purposes only.) The performance of this assay has not been clinically validated in patients less than 2 years old. 10/01/2021 10:5 0 AM EST us Rolanda Patino HOUSING COURT JUDGE LAB BLOOD ORDERABLES Final Res ult [facility] Anywhere [address] from Last 3 Months or Most Recently Relevant to Health Maintenance Insurance [facility] Care Teams Water Plant Operator Relationship Specialty Start Date End Date ClearwaterEllie [facility] [address] [place] [phone] PCP - General Family Medicine 10/08/24
--- OUTSIDE RECORDS SUMMARY | 2025-07-01 22:32 | XMS_ITS | Clinical Summary ---
Author Organization [facility] Address [address] [place] [address] Care Team Providers Care Manager Assisted Living Name Role Phone Charmaine Cheney Primary Care Provider [phone] Allergies No known active allergies Medications amLODIPine (NORVASC) 10 mg tablet Take 10 mg by mouth once a day. 09/11/2021 Active atorvastatin (LIPITOR) 10 mg tablet Take 10 mg by mouth nightly. 10/01/2021 Active blood pressure test kit-large kit USE TO CHECK BLOOD PRESSURE DAILY, sentado en loc silla con ambos pies planos en el piso 09/11/2021 Active Antacid, calcium carbonate, 200 mg calcium (500 mg) chewable tablet Chew and swallow 1 tablet by mouth once a day. 11/10/2021 Active Vitamin D3 50 mcg (2,000 unit) capsule Take 1 capsule by mouth once a day. 10/05/2021 Active FeroSuL 325 mg (65 mg iron) tablet Take 1 tablet by mouth every 48 hours. 10/05/2021 Active hydroCHLOROthia zide (HYDRODIURIL) 25 mg tablet Take 25 mg by mouth once a day. 09/11/2021 Active valsartan (DIOVAN) 320 mg tablet Take 320 mg by mouth once a day. 09/11/2021 Active Active Problems Problem Noted Date Diagnosed [...] 01/28/2025 12:21 PM EDT Plan of Treatment Health Maintenance Due Date Last Done Comments Basic Metabolic Panel 1965 Cologuard 1965 FOBT / Fit Test 1965 HIV Screening 1965 Hepatitis C Screening 1965 Sigmoidoscopy 1967 Hepatitis B Vaccines (1 of 3 - 19+ 3-dose series) 1986 DTaP,Tdap,and Td Vaccines (1 - Tdap) 1989 Diabetes Screening 2002 Mammogram 2007 Pneumococcal Vaccine: 50+ Ye ars (1 of 1 - PCV) 2017 Zoster Vaccines (1 of 2) 2017 Alcohol/Substance Use Screening 07/25/2024 Depression Screening and Follow-Up 07/25/2024 Social Drivers of Health Annual Screening 07/25/2024 Influenza Vaccine (#1) 2025 Colon Cancer Screening 01/28/2035 Colonoscopy 01/28/2035 01/28/2025, 01/28/2025 Procedures * Due to [place] [employer] law, this organization might not be sharing negative HIV tests. Procedure Name Priority Date/Time Associated Diagnosis Comments COLONOSCOPY 01/28/2025 from Last 3 Months or Most Recently Relevant to Health Maintenance Results * Due to [place] [employer] law, this organization might not be sharing negative HIV tests. * COLONOSCOPY (01/28/2025) Narrative Procedure Note Syl Mcdonough MD - 01/28/2025 1:01 PM EDT [facility] [address] [facility] Patient Name: Reyna Trinidad Procedure Date: 51:01 PM Date of : 1965 Admit Type: Outpatient Age: 59 Room: [facility] 03 Gender: Female Note Status: Finalized [...] by the physician, the nurse and the electronics repair technician in the pre-procedure area in theprocedure [...] Final Resul t from Last 3 Months or Most Recently Relevant to Health Maintenance [facility] Care Teams Manager Assisted Living Relationship Specialty Start Date End Date Charmaine Cheney [address] [place] [address] [phone] PCP - General Family Medicine 10/25/22
--- OUTSIDE RECORDS SUMMARY | 2025-07-01 22:32 | XMS_ITS | Clinical Summary ---
Author Organization [facility] Address [address] [place] [id number] Phone Care Team Providers Care Slater Apprentice Name Role Phone System, Provider Not In [...] Upcoming Encounters Date Type Department Care Team ([facility] st Contact Info) Description 07/04/2025 2:40 PM EST Office Visit [facility] [address] [place] [address] Satya Hightower MD [address] [place] [id number] [email or web address] Health Maintenance Due Date Last Done Comments [...] 2017 ZOSTER VACCINES (1 of 2) 2017 INFLUENZA VACCINE (#1) 2025 COVID-19 VACCINE (1 - 2024-2 6 season) 2025 RSV VACCINE (1 - 1-dose 75+ series) 2042 HEPATITIS A VACCINES Aged Out No long [...] topic Medical Devices Not on file Insurance [facility] LIMITED COUNTS INCLUDE 234 BEDS AT THE [facility] FULL [facility] SAFETY NET FULL [facility] NET FULL [facility] LIMITED COUNTS INCLUDE 234 BEDS AT THE [facility] FULL [facility] LIMITED COUNTS INCLUDE 234 BEDS AT THE [facility] FULL [facility] NET FULL Care Teams Slater Apprentice Relationship Specialty Start Date End Date System, Provider Not In, [employer] [address] [address] PCP - General 01/14/25 Additional Source Comments The information contained in this document represents components of the legal health record. It is not the complete legal health record.[facility]
--- OUTSIDE RECORDS SUMMARY | 2025-07-01 22:32 | XMS_ITS | Encounter Summary ---
Author Organization [employer] Address [address] [place] [address] [address] [address] Care Team Providers Care Trial Management Associate Name Role Phone Ellie Suh Primary Care Provider [phone] Reason for Referral * Consultation (Routine) - Closed Specialty Diagnoses / Procedures Referred By Contjayy t Referred To Contact Ophthalmology Diagnoses Combined form of age-related cataract, both eyes Tammy Mercado, OD [address] [place] [address] Phone: tel: fax: Mark Nichols MD [address] [place] [address] Phone: tel: Referral ID Status Reason Start Date Expiration Date V isits Requested Visits Authorized [id number] Closed Specialty Services Required 10/09/2024 10/09/2025 1 1 Encounter Details Date Type Department Care Team (Late st Contact Info) Description 10/09/2024 Orders Only [facility] OPTOMETRY [address] [place] [address] Tammy Mercado, OD [address] [place] [address] Combined form of age-related cataract, both eyes [...] Description 10/14/2025 3:00 PM EDT Office Visit [facility] OPTOMETRY [address] [place] [address] Rogelio, Tammy, OD [address] [place] [address] Scheduled Referrals Name Type Priority Associated Diagnoses [...] documented as of this encounter Care Teams Trial Management Associate Relationship Specialty Start Date End Date [place]EllieTADEO [address] [place] [address] PCP - General Family Medicine 10/08/24 documented as of this encounter
--- OUTSIDE RECORDS SUMMARY | 2025-07-01 22:32 | XMS_ITS | Encounter Summary ---
Author Organization [employer] Address [address] [facility] 7t [place] [address] Care Team Providers Care Telephone Interceptor Operator Name Role Phone Ellie Suh UTILITY MECHANIC Primary Care Provider [phone] Encounter Details Date Type Department Care Team (Latest Contact Info) Description 07/01/2025 Travel Social History Tobacco Use Types Packs/Day Years Used Date Smoking Tobacco: Never Smokeless Tobacco: Never Alcohol Use Standard Drinks/Week Comments Yes 0 (1 standard drink = 0.6 oz pur e alcohol) occasionally Depression Answer Date Recorded Patient Health Questionnaire-9 Score 0 07/01/2025 Patient Health Questionnaire-9 Score 0 07/01/2025 Last PHQ-9: Questionnaire Data Not on file 1 09/01/2024 Housing Stability Answer Date Recorded What is your housing situation today? I have delagatha moreno 06/17/[address] you [...] t he electric, gas, oil or water [employer] threatened to shut off services in your [...] AM EDT documented as of this encounter Functional Status * Over the past 2 weeks, how often have you been bothered by any of the following problems? Question Answer Date of Assessment Author Patient Health Questionnaire-2 Score 0 07/01/2025 1:02 PM Joya Nation [place] * Little interest or pleasure in [...] Not at all 07/01/2025 1:02 PM Joya Espinoza MA * Trouble concentrating on things, such [...] or control worrying 0 07/01/2025 1:02 PM Joya Nation MA Worrying too much about different things 0 07/01/2025 1:02 PM Joya Nation [place] Trouble relaxing 0 07/01/2025 1:02 PM EST Joya Ruiz MA Being so restless that it is hard to sit still 0 07/01/2025 1:02 PM Joya Nation MA Becoming easily annoyed or irritable 0 07/01/2025 1:02 PM Joya Nation MA Feeling afraid as if something awful might happen 0 07/01/2025 1:02 PM EST Joya Esparza MA YAYO-7 Total Score 0 07/01/2025 1:02 PM Joya Nation MA documented as of this encounter Plan of Treatment Upcoming Encounters Date Type Department Care Team (Late st Contact Info) Description 10/14/2025 3:00 PM EDT Office Visit [facility] OPTOMETRY [address] [place] [address] Tammy Mercado, OD [address] [place] [address] documented as of this encounter Visit Diagnoses Not on filedocumented in this encounter Additional Health Concerns Assessment Noted Time PHQ-9 Depression Total Score: 0 07/01/20 25 1:02 PM EST documented as of this encounter Care Teams Telephone Interceptor Operator Relationship Specialty Start Date End Date Ellie Suh FNP [address] [place] [address] PCP - General Family Medicine 10/08/24 documented as of this encounter
--- OUTSIDE RECORDS SUMMARY | 2025-07-01 22:32 | XMS_ITS | Encounter Summary ---
Author Organization [employer] Address [address] [facility] 7t [place] [address] Care Team Providers Care Record Filing Clerk Name Role Phone Ellie Suh MOUTHPIECE MAKER Primary Care Provider [phone] Encounter Details Date Type Department Care Team (Late st Contact Info) Description 10/09/2024 Orders Only C OPTOMETRY [address] [place] [address] Rogelio, Tammy, OD [address] [place] [address] Combined form of age-related cataract, both eyes [...] housing situation today? I have delagatha moreno 05/11/[address] you [...] Description 10/14/2025 3:00 PM EDT Office Visit [facility] OPTOMETRY [address] [place], [place] [id number] Rogelio, Tammy, OD [address] [place] [address] documented as of this encounter Visit Diagnoses Diagnosis Combined form of age-related cataract, both eyes- Primary documented in this encounter Additional Health Concerns Assessment Noted Time PHQ-9 Depression Total Score: 4 08/23/19 23 1:45 PM EST documented as of this encounter Care Teams Record Filing Clerk Relationship Specialty Start Date End Date Ellie Suh FNP [address] [place] [address] PCP - General Family Medicine 10/08/24 documented as of this encounter
--- OUTSIDE RECORDS SUMMARY | 2025-07-01 22:32 | XMS_ITS | Encounter Summary ---
Author Organization [employer] Address [address] [facility] 7t [place] [address] Care Team Providers Care Tobacco Warehouse Manager Name Role Phone Ellie Suh J2EE DEVELOPER Primary Care Provider [phone] Encounter Details Date Type Department Care Team (Late st Contact Info) Description 01/30/2025 Orders Only [facility] [address] [place] [address] Provider, MD Mil Social History Tobacco Use Types Packs/Day Years [...] Description 10/14/2025 3:00 PM EDT Office Visit [facility] OPTOMETRY [address] [place] [address] Rogelio, Tammy, OD [address] [place] [address] documented as of this encounter Procedures Procedure Name Priority Date/Time Associated Diagnosis Comments COLONOSCOPY Routine 01/28/2025 12:41 PM EDT documented in this encounter Results * Colonoscopy (01/28/2025 12:41 PM EDT) Anatomical Region Laterality Modality Endoscopy us Historical Provider ENDOSCOPY PROCEDURE ORDER CUONG Final Result documented in this encounter Visit Diagnoses Not on filedocumented in this encounter Additional Health Concerns Assessment Noted Time PHQ-9 Depression Total Score: 4 08/23/19 23 1:45 PM EST documented as of this encounter Care Teams Tobacco Warehouse Manager Relationship Specialty Start Date End Date Ellie Suh FNP [address] [place] [address] PCP - General Family Medicine 10/08/24 documented as of this encounter
== END 2025-07-01 13:45 | disposition home or self-care (01) ==
LOC: HO.HHCL 13:44
PROVIDERS: PCP Registered Nurse; Visit Provider Registered Nurse
DX: Z13.1 Encounter for screening for diabetes mellitus (principal); I10 Essential (primary) hypertension; E66.813 Obesity, class 3; Z68.41 Body mass index [BMI] 40.0-44.9, adult; R10.13 Epigastric pain
CPT/HCPCS: 36415; 80053; 80061; 83036; 85025

== ENCOUNTER 2025-07-02 13:43 | Outpatient (REF) | payer SELFPAY ==
--- OUTSIDE RECORDS SUMMARY | 2025-07-01 13:00 | XMS_ITS | Encounter Summary ---
Author Organization [employer] Address [address] [place] [address] [address] [address] Care Team Providers Care Charger Tester Name Role Phone [facility] Primary Care Provider [phone] Reason for Visit * Reason Comments Follow-up Encounter Details Date Type Department Care Team ([facility] Contact Info) Description 07/01/2025 1:00 PM EST Office Visit [facility] [address] [place], [place] [phone] [facility] [address] [place] [address] Dyspepsia (Primary Dx); Primary hypertension; Dietary counseling; [...] on edge 0 07/01/2025 1:02 PM Joya Nation [place] Not being able to stop or [...] Description 10/14/2025 3:00 PM EDT Office Visit [facility] [address] [place] [address] Tammy Mercado, OD [address] [place] [address] Scheduled Orders Name Type Priority Associated Diagnoses [...] PM EST) Hemoglobin A1c 6.0 <6.0 % [facility] Comment:Hemoglobin A1C Refer ence Range Adults: 4.8 - 6.0 % Non diabetic: < 6.0 % Goal: < 7.0 %Additional Action Suggested: > 8.0 %Note: Hemoglobin A1c results are invalid for patients with abnormal amounts of HbF. Blood transfusions may impact the HbA1c concentration in the patient sample. Estimated Average Glucose 126 mg/dL [facility] Comment:eAG = Estimated ave rage glucose which is %A1C expressed asaverage glucose, using the formula of the [id number]-[id number] Glucose study (ADAG), Diabetes Care, Vol.31,#8,Feb. 2007 Blood Venous blood specimen / Unknown 07/01/2025 1:50 PM EST 07/01/2025 4:07 PM EST [facility] LAB BLOOD ORDERABLES Final Re sult [facility] [address] [place] [phone] * (ABNORMAL) CBC auto differential (07/01/2025 1:50 PM EST) White Blood Count 5.1 4.8 - 10.8 X10*3/uL [facility] Red Blood Count 3.93(L) 4.20 - 5.50 X10*6/uL [facility] Hemoglobin 11.2(L) 12.0 - 16.0 g/dl [facility] Hematocrit 35.1(L) 37.0 - 47.0 % [facility] Mean Corpuscular Volume 89.3 80.0 - 98.0 fL [facility] Mean Corpuscular Hemoglobin 28.5 27.0 - 33.0 pg [facility] Mean Corpuscular HGB Conc 31.9 31.0 - 35.0 g/dl [facility] Red Cell Distribution Width 13.3 11.0 - 16.0 % [facility] Platelet Count 293 160 - 400 X10*3/uL [facility] Mean Platelet Volume 11.1 9.4 - 12.3 fL [facility] Neutrophils Percent Auto 43.8(L) 45 - 73 % [facility] Imm Gran Pct Auto 0.2 0.0 - 0.4 % [facility] Lymphocytes Percent Auto 44.6(H) 20 - 40 % [facility] Monocytes Percent Auto 9.2 2 - 11 % [facility] Eosinophils Percent Auto 1.8 0 - 4 % [facility] Basophils Percent Auto 0.4 0 - 2 % [facility] NRBC Pct Auto 0.0 0.0 - 0.2 /100WBC [facility] Neutrophils Absolute Auto 2.2 2.0 - 8.3 x10*3/uL [facility] Imm Gran Abs Auto 0.01 0.00 - 0.03 X10*3/uL [facility] Lymphocytes Absolute Auto 2.3 1.2 - 4.9 X10*3/uL [facility] Monocytes Absolute Auto 0.5 0.1 - 1.2 X10*3/uL [facility] Eosinophils Absolute Auto 0.1 0.0 - 0.4 X10*3/uL [facility] Basophils Absolute Auto 0.0 0.0 - 0.2 X10*3/uL [facility] NRBC Abs Auto 0.000 0.0 - 0.012 X10*3/uL [facility] Blood Venous blood specimen / Unknown 07/01/2025 1:50 PM EST 07/01/2025 4:07 PM EST [facility] LAB BLOOD ORDERABLES Final Re sult [facility] [address] [place] [address] [phone] * (ABNORMAL) Lipid Panel, Standard (07/01/2025 1:50 PM EST) Triglycerides 109 <150 mg/dL [facility] Comment:Desirable Triglyceri de: less than 150 mg/dLBorderline High Triglyceride 150-199 mg/dLHigh Triglyceride: 200-499 mg/dLVery High Triglyceride: greater than or equal to 5OO mg/dL Cholesterol 203(H) <200 mg/dL [facility] Comment:Desirable Cholestero l: less than 200 mg/dLBorderline High Cholesterol: 200-239 mg/dLHigh Cholesterol: greater than 239 mg/dL LDL Cholesterol Calculated 126(H) <100 mg/dL [facility] Comment:Desirable LDL: less than 100 mg/dLNear Optimal/Above Optimal LDL: 110- 129 mg/dLBorderline High LDL: 130-159 mg/dLHigh LDL: 160-189 mg/dLVery High LDL: greater than or equal to 190 mg/dL HDL Cholesterol 56 >40 mg/dL [facility] Comment:Desirable HDL: great er than 40 mg/dL Note: This HDL assay may give artificially low results in patients with liver disease. Blood Venous blood specimen / Unknown 07/01/2025 1:50 PM EST 07/01/2025 4:07 PM EST [facility] LAB BLOOD ORDERABLES Final Re sult [facility] [address], [place] [phone] * (ABNORMAL) Comprehensive Metabolic Panel (07/01/2025 1:50 PM EST) Sodium 141 135 - 145 mmol/L [facility] Potassium 4.1 3.3 - 5.1 mmol/L [facility] Chloride 108 96 - 108 mmol/L [facility] Carbon Dioxide 27 22 - 29 mmol/L [facility] Anion Gap 10(L) 12 - 20 [facility] Urea Nitrogen (BUN) 14 9 - 16 mg/dL [facility] Creatinine, Serum 0.72 0.5 - 1.4 mg/dL [facility] Estimated Glomerular Filt Rate >60 [facility] Comment:Chronic Kidney Disea se: Estimated GFR < 60 mL/min/[id number] Kidney Disease: Estimated GFR < 15 mL/min/1.73m2 Glucose 83 60 - 115 mg/dL [facility] Calcium 9.1 8.4 - 10.2 mg/dL [facility] Bilirubin, Total 0.1 0.0 - 1.0 mg/dL [facility] Aspartate Amino Transferase 24 5 - 31 U/L [facility] Alanine Aminotransferase 16 0 - 31 U/L [facility] Total Protein 7.2 6.5 - 8.0 g/dL [facility] Albumin Level 4.2 3.5 - 5.0 g/dL [facility] Alkaline Phosphatase 63 39 - 117 U/L [facility] Blood Venous blood specimen / Unknown 07/01/2025 1:50 PM EST 07/01/2025 4:07 PM EST [facility] LAB BLOOD ORDERABLES Final Re sult [facility] [address] [place] [phone] documented in this encounter Visit Diagnoses [...] documented as of this encounter Care Teams Charger Tester Relationship Specialty Start Date End Date Ellie Suh FNP [address] [place] [phone] PCP - General Family Medicine 10/08/24 documented as of this encounter
--- OUTSIDE RECORDS SUMMARY | 2025-07-02 19:41 | XMS_ITS | Encounter Summary ---
Author Organization [employer] Address [address] [facility] 7t [place] [address] Care Team Providers Care Manager Of Program Name Role Phone Ellie Suh BIRTH CERTIFICATE CLERK Primary Care Provider Encounter Details Date Type Department Care Team (Late st Contact Info) Description 10/09/2024 Orders Only C OPTOMETRY [address] [place] [address] Rogelio, Tammy, OD [address] [place] [address] Combined form of age-related cataract, both eyes [...] Description 10/14/2025 3:00 PM EDT Office Visit [facility] OPTOMETRY [address] [place], [place] [phone] Rogelio, Tammy, OD [address] [place] [address] documented as of this encounter Visit Diagnoses Diagnosis Combined form of age-related cataract, both eyes- Primary documented in this encounter Additional Health Concerns Assessment Noted Time PHQ-9 Depression Total Score: 4 08/23/19 23 1:45 PM EST documented as of this encounter Care Teams Manager Of Program Relationship Specialty Start Date End Date Ellie Suh FNP [address] [place] [address] PCP - General Family Medicine 10/08/24 documented as of this encounter
--- OUTSIDE RECORDS SUMMARY | 2025-07-02 19:41 | XMS_ITS | Encounter Summary ---
Author Organization [employer] Address [address] [place] [address] Care Team Providers Care Automotive Exhaust Emissions Technician Name Role Phone Ellie Suh Primary Care Provider [phone] Reason for Referral * Consultation (Routine) - Closed Specialty Diagnoses / Procedures Referred By Contjayy t Referred To Contact Ophthalmology Diagnoses Combined form of age-related cataract, both eyes Tammy Mercado, OD [address] [place] [address] Phone: tel: fax: Mark Nichols MD [address] [place] [address] Phone: tel: Referral ID Status Reason Start Date Expiration Date V isits Requested Visits Authorized [id number] Closed Specialty Services Required 10/09/2024 10/09/2025 1 1 Encounter Details Date Type Department Care Team (Late st Contact Info) Description 10/09/2024 Orders Only [facility] OPTOMETRY [address] [place] [address] Tammy Mercado, OD [address] [place] [address] Combined form of age-related cataract, both eyes [...] Description 10/14/2025 3:00 PM EDT Office Visit [facility] OPTOMETRY [address] [place] [address] Rogelio, Tammy, OD [address] [place] [address] Scheduled Referrals Name Type Priority Associated Diagnoses [...] documented as of this encounter Care Teams Automotive Exhaust Emissions Technician Relationship Specialty Start Date End Date GabbsEllieTADEO [address] [place] [address] PCP - General Family Medicine 10/08/24 documented as of this encounter
--- OUTSIDE RECORDS SUMMARY | 2025-07-02 19:41 | XMS_ITS | Clinical Summary ---
Author Organization [employer] Address [address] [facility] 7t [place] [address] Care Team Providers Care Certified Solid Waste Facility Operator Name Role Phone Ellie Suh COAL UNLOADER Primary Care Provider [phone] Allergies No known active allergies Medications Blood [...] that would accept her insurance is in [facility] and transportation is very difficult for her [...] ventricular hypertrophy 08/23/2022 Overview (08/23/2022): Evaluated by [facility] Has followup appt 11/19/22 Assessment & Plan (02/13/2023 7:12 PM EDT): Cleared by [facility]. No f/u needed Osteopenia 11/09/2021 Overview [...] Description 07/01/2025 1:00 PM EST Office Visit [facility] [address] [place] [phone] Ellie Suh FNP Dyspepsia (Primary Dx); Primary hypertension; Dietary counseling; Exercise counseling; Class 3 severe obesity due to excess calories with serious comorbidity and body mass index (BMI) of 40.0 to 44.9 in adult (HCC); Encounter for immunization 07/01/2025 Travel 06/17/2025 Patient Outreach [facility] [address] [place] [phone] Ellie Suh FNP Care Coordination (CHW outreach for SDOH housing search-referral completed ) 06/17/2025 Patient Outreach [facility] [address] [place] [phone] Ellie Suh FNP Pre-visit Planning (SDOH screening negative and tobacco screening negative) 05/15/[address] [address] Ellie Suh FNP dec recall from Last [...] Description 10/14/2025 3:00 PM EDT Office Visit [facility] OPTOMETRY [address] [place] [address] Rogelio, Tammy, OD [address] [place] [address] Health Maintenance Due Date Last Done Comments [...] Blood Count 5.1 4.8 - 10.8 X10*3/uL [facility] Red Blood Count 3.93(L) 4.20 - 5.50 X10*6/uL [facility] Hemoglobin 11.2(L) 12.0 - 16.0 g/dl [facility] Hematocrit 35.1(L) 37.0 - 47.0 % [facility] Mean Corpuscular Volume 89.3 80.0 - 98.0 fL [facility] Mean Corpuscular Hemoglobin 28.5 27.0 - 33.0 pg [facility] Mean Corpuscular HGB Conc 31.9 31.0 - 35.0 g/dl [facility] Red Cell Distribution Width 13.3 11.0 - 16.0 % [facility] Platelet Count 293 160 - 400 X10*3/uL [facility] Mean Platelet Volume 11.1 9.4 - 12.3 fL [facility] Neutrophils Percent Auto 43.8(L) 45 - 73 % [facility] Imm Gran Pct Auto 0.2 0.0 - 0.4 % [facility] Lymphocytes Percent Auto 44.6(H) 20 - 40 % [facility] Monocytes Percent Auto 9.2 2 - 11 % [facility] Eosinophils Percent Auto 1.8 0 - 4 % [facility] Basophils Percent Auto 0.4 0 - 2 % [facility] NRBC Pct Auto 0.0 0.0 - 0.2 /100WBC [facility] Neutrophils Absolute Auto 2.2 2.0 - 8.3 x10*3/uL [facility] Imm Gran Abs Auto 0.01 0.00 - 0.03 X10*3/uL [facility] Lymphocytes Absolute Auto 2.3 1.2 - 4.9 X10*3/uL [facility] Monocytes Absolute Auto 0.5 0.1 - 1.2 X10*3/uL [facility] Eosinophils Absolute Auto 0.1 0.0 - 0.4 X10*3/uL [facility] Basophils Absolute Auto 0.0 0.0 - 0.2 X10*3/uL [facility] NRBC Abs Auto 0.000 0.0 - 0.012 X10*3/uL [facility] Blood Venous blood specimen / Unknown 07/01/2025 1:50 PM EST 07/01/2025 4:07 PM EST [facility] LAB BLOOD ORDERABLES Final Re sult [facility] [address] [place] [phone] * Hemoglobin A1c (07/01/2025 1:50 PM EST) Hemoglobin A1c 6.0 <6.0 % [facility] Comment:Hemoglobin A1C Refer ence Range Adults: 4.8 - 6.0 % Non diabetic: < 6.0 % Goal: < 7.0 %Additional Action Suggested: > 8.0 %Note: Hemoglobin A1c results are invalid for patients with abnormal amounts of HbF. Blood transfusions may impact the HbA1c concentration in the patient sample. Estimated Average Glucose 126 mg/dL [facility] Comment:eAG = Estimated ave rage glucose which is %A1C expressed asaverage glucose, using the formula of the H2L-YzkwlvqYtjreff Glucose study (ADAG), Diabetes Care, Vol.31,#8,2007 Blood Venous blood specimen / Unknown 07/01/2025 1:50 PM EST 07/01/2025 4:07 PM EST [facility] LAB BLOOD ORDERABLES Final Re sult Performing Organization Address [facility] de Phone Number [facility] [address] [place] [phone] * (ABNORMAL) Lipid Panel, Standard (07/01/2025 1:50 PM EST) Triglycerides 109 <150 mg/dL [facility] Comment:Desirable Triglyceri de: less than 150 mg/dLBorderline High Triglyceride 150-199 mg/dLHigh Triglyceride: 200-499 mg/dLVery High Triglyceride: greater than or equal to 5OO mg/dL Cholesterol 203(H) <200 mg/dL [facility] Comment:Desirable Cholestero l: less than 200 mg/dLBorderline High Cholesterol: 200-239 mg/dLHigh Cholesterol: greater than 239 mg/dL LDL Cholesterol Calculated 126(H) <100 mg/dL [facility] Comment:Desirable LDL: less than 100 mg/dLNear Optimal/Above Optimal LDL: 110- 129 mg/dLBorderline High LDL: 130-159 mg/dLHigh LDL: 160-189 mg/dLVery High LDL: greater than or equal to 190 mg/dL HDL Cholesterol 56 >40 mg/dL [facility] Comment:Desirable HDL: great er than 40 mg/dL Note: This HDL assay may give artificially low results in patients with liver disease. Blood Venous blood specimen / Unknown 07/01/2025 1:50 PM EST 07/01/2025 4:07 PM EST [facility] LAB BLOOD ORDERABLES Final Re sult Performing Organization Address [facility] Co de Phone Number [facility] [address] [place] [phone] * (ABNORMAL) Comprehensive Metabolic Panel (07/01/2025 1:50 PM EST) Sodium 141 135 - 145 mmol/L [facility] Potassium 4.1 3.3 - 5.1 mmol/L [facility] Chloride 108 96 - 108 mmol/L [facility] Carbon Dioxide 27 22 - 29 mmol/L [facility] Anion Gap 10(L) 12 - 20 [facility] Urea Nitrogen (BUN) 14 9 - 16 mg/dL [facility] Creatinine, Serum 0.72 0.5 - 1.4 mg/dL [facility] Estimated Glomerular Filt Rate >60 [facility] Comment:Chronic Kidney Disea se: Estimated GFR < 60 mL/min/1.84l8Lqiadm Kidney Disease: Estimated GFR < 15 mL/min/1.73m2 Glucose 83 60 - 115 mg/dL [facility] Calcium 9.1 8.4 - 10.2 mg/dL [facility] Bilirubin, Total 0.1 0.0 - 1.0 mg/dL [facility] Aspartate Amino Transferase 24 5 - 31 U/L [facility] Alanine Aminotransferase 16 0 - 31 U/L [facility] Total Protein 7.2 6.5 - 8.0 g/dL [facility] Albumin Level 4.2 3.5 - 5.0 g/dL [facility] Alkaline Phosphatase 63 39 - 117 U/L [facility] Blood Venous blood specimen / Unknown 07/01/2025 1:50 PM EST 07/01/2025 4:07 PM EST [facility] COAL UNLOADER LAB BLOOD ORDERABLES Final Re sult [facility] [address] [place] [phone] * BI Mammogram Screening Tomosynthesis Bilateral (03/04/2025 3:07 PM EDT) Anatomical Region Laterality Modality Breast Bilateral Mammography 03/04/2025 3:07 PM EDT Narrative 03/12/2025 10:12 AM EDT [address] [place] [address] Mammography Report Signed Patient: Reyna Magana MR#: [id number] : 1965 Acct:[id number] Age/Sex: 59 / F ADM Date: 03/04/25 Loc: HO.MAMMO Attending Dr: Ellie Suh COAL UNLOADER Ordering Physician: Ellie Suh COAL UNLOADER Results: 1Nega tive Date of Service: 03/04/25 Follow Up: 1 Year From Orig ina Mammogram Procedure(s): MM tomosynthesis screening BI Accession Number(s): [id number] cc: Ellie Suh COAL UNLOADER EXAMINATION: MM SCREENING DIGITAL BREAST TOMOSYNTHESIS, BILATERAL [...] 03/12/25 1010 DD/ 1507 TD/TT: 03/04/25 1537 Pulmonary Specialist: Procedure Note Donotuseinterpreter, Image - 03/12/[address] [place] [address] Mammography Report Signed Patient: Reyna MaganaMR#: [id number] : 1965Acct:[id number] Age/Sex: 59 / FADM Date: 03/04/25 Loc: HO.MAMMO Attending Dr: Ellie Suh COAL UNLOADER Ordering Physician: Ellie Suh FNPResults: 1Nega tive Date of Service: 03/04/25Follow Up: 1 Year From Orig inal Mammogram Procedure(s): MM tomosynthesis screening BI Accession Number(s): [id number] cc: Ellie Suh COAL UNLOADER EXAMINATION: MM SCREENING DIGITAL BREAST TOMOSYNTHESIS, BILATERAL [...] 03/12/25 1010 DD/ 1507 TD/TT: 03/04/25 1537 Pulmonary Specialist: [facility] COAL UNLOADER IMG BI PROCEDURES Final Resul t * Colonoscopy (01/28/2025 12:41 PM EDT) Anatomical Region Laterality Modality Endoscopy Historical Provider ENDOSCOPY PROCEDURE ORDER CUONG Final Result * Hepatitis Panel, General (02/17/2023 10:17 AM EDT) Hepatitis A IgM Nonreactive Nonreactive [facility] Comment:IgM antibodies to PARDO V not detected; does not exclude earlyacute or recovered HAV infection. ~Hepatitis B Surface Antibody NONREACTIVE Nonreactive [facility] Comment:Nonreactive: < 8.00 mIU/mL Hepatitis B Core Antibody Nonreactive Nonreactive [facility] Hepatitis C Antibody Nonreactive Nonreactive [facility] Comment:Antibodies to HCV no t detected; does not exclude early acuteHCV infection. Hepatitis B Surface Ag Negative Negative [facility] Blood 02/17/2023 10:1 7 AM EDT 02/17/2023 11:18 AM EDT Charmaine Cheney COAL UNLOADER LAB BLOOD ORDERABLES Final Result [facility] [address] [place] [phone] * Thinprep TIS PAP And HPV mRNA E6/E7 With Reflex To HPV 16,18/45 (09/20/2022 3:11 PM EST) Clinical Information: None given 57 YEAR OLD FEMALE WITH LAST PAP 3 Narrative Sciencet LMP: NONE GIVEN [facility] [place] [employer]pt Prev. PAP: NONE GIVEN Narrative [employer]cet Prev. BX: NO Narrative [employer]et SOURCE: None given Narrative Sciencet Statement Of Adequacy: SATISFACTORY FOR EVALUATION Keep [employer] Certified Interpretation/Re sult: [employer] Comment: Negative for intraepithelial lesion or malignancy. Atrophic pattern; predominantly parabasal cells Comment: This Pap test has been evaluated with computer assisted technology. Keep Me Certified Bottomer Operator: [facility] Comment: BK,CT(ASCP) CT screening location: [address] (Always Message) [facility] [employer] Comment: EXPLANATORY NOTE: The Pap is a [...] HPV nRNA E6/E7 Not Detected Not Detected [facility] [place] [employer] Comment: Methodology: Retail Supervisor-Mediated Amplification This assay detects E6/E7 viral messenger RNA (mRNA) from 14 high-risk HPV types (16,18,31,33,35,39,45,51,52,56,58,59,66,68). Cervical sources are required for HPV testing. If a vaginal source from a patient who has had a total hysterectomy with removal of cervix was submitted, please contact the testing laboratory for alternative testing options. For additional information, please refer to http://education.[employer]/faq/HTY340g6 (This link if provided for information/ educational purposes only.) Genital fluid specimen (specimen) 09/20/2022 3:11 PM EST 09/21/2022 8:56 PM EST us Charmaine Cheney [facility] PATHOLOGY ORDERABLES F inal Result Yolto [address] [facility], [facility], [place] [address] [facility] [address] [facility], (N[address]) [place] [address] * HIV 1/2 ANTIGEN/ANTIBODY,FOURTH GENERATION W/RFL (10/01/2021 10:50 AM EST) HIV-1/2 ANTIGEN AND ANTIBODIES, 4TH GENERATION W/ REFLEX NON-REACT JAGDEEP NON-REACT JAGDEEP [facility] Comment: HIV-1 antigen and HIV-1/HIV-2 [...] purpose. For additional information please refer to http://education.[employer].Dahu/faq/UEV872 (This link is being provided for informational/ educational purposes only.) The performance of this assay has not been clinically validated in patients less than 2 years old. 10/01/2021 10:5 0 AM EST us Rolanda Patino COAL UNLOADER LAB BLOOD ORDERABLES Final Res ult [facility] [address] from Last 3 Months or Most Recently Relevant to Health Maintenance Insurance [facility] FULL [facility] LIMITED Care Teams Certified Solid Waste Facility Operator Relationship Specialty Start Date End Date SargentsEllie [facility] [address] [place] [phone] PCP - General Family Medicine 10/08/24
--- OUTSIDE RECORDS SUMMARY | 2025-07-02 19:42 | XMS_ITS | Encounter Summary ---
Author Organization [employer] Address [address] [facility] 7t [place] [address] Care Team Providers Care Radiology Physician Assistant Name Role Phone Ellie Suh OVERLOCK OPERATOR Primary Care Provider [phone] Encounter Details Date Type Department Care Team (Late st Contact Info) Description 01/30/2025 Orders Only [facility] [address] [place] [address] Provider, MD [place] Social History Tobacco Use [...] Description 10/14/2025 3:00 PM EDT Office Visit [facility] OPTOMETRY [address] [place] [address] Rogelio, Tammy, OD [address] [place] [address] documented as of this encounter Procedures Procedure [...] documented as of this encounter Care Teams Radiology Physician Assistant Relationship Specialty Start Date End Date Ellie Suh FNP [address] [place] [address] PCP - General Family Medicine 10/08/24 documented as of this encounter
--- OUTSIDE RECORDS SUMMARY | 2025-07-02 19:42 | XMS_ITS | Clinical Summary ---
Author Organization [facility] Address [address] [place] [phone] Phone Care Team Providers Care English Teacher Name Role Phone System, Provider Not In [...] Upcoming Encounters Date Type Department Care Team ([facility] st Contact Info) Description 07/04/2025 2:40 PM EST Office Visit [facility] [address] [place] [address] Satya Hightower MD [address] [place] [phone] [email or web address] Maintenance Due Date Last [...] topic Medical Devices Not on file [facility] F[facility]ULL [facility] NET FULL [facility] FULL [facility] LIMITED [facility] FULL [facility] LIMITED [facility] NET FULL Care Teams English Teacher Relationship Specialty Start Date End Date System, Provider Not In, [employer] [address] [address] PCP - General 01/14/25 Additional Source Comments The information contained in this document represents components of the legal health record. It is not the complete legal health record.[facility]
--- OUTSIDE RECORDS SUMMARY | 2025-07-02 19:42 | XMS_ITS | Clinical Summary ---
Author Organization [facility] Address [address] [place] [address] Care Team Providers Care Diet Aide Name Role Phone Charmaine Cheney Primary Care Provider [phone] Allergies No known active allergies Medications amLODIPine [...] 01/28/2035 01/28/2025, 01/28/2025 Procedures * Due to [place] [employer] law, this organization might not be sharing negative HIV tests. Procedure Name Priority Date/Time Associated Diagnosis Comments COLONOSCOPY 01/28/2025 from Last 3 Months or Most Recently Relevant to Health Maintenance Results * Due to [place] [employer] law, this organization might not be sharing negative HIV tests. * COLONOSCOPY (01/28/2025) Narrative Procedure Note Syl Mcdonough MD - 01/28/2025 1:01 PM EDT [facility] Endoscopy - [address] [facility] Patient Name: Reyna Trinidad Procedure Date: 51:01 PM Date of : 1965 Admit Type: Outpatient Age: 59 Room: [facility] Gender: Female Note Status: Finalized [...] by the physician, the nurse and the photographic equipment technician in the pre-procedure area in theprocedure [...] Most Recently Relevant to Health Maintenance [facility] Care Teams Diet Aide Relationship Specialty Start Date End Date Charmaine Cheney [address] [place] [address] [phone] PCP - General Family Medicine 10/25/22
--- OUTSIDE RECORDS SUMMARY | 2025-07-02 19:42 | XMS_ITS | Encounter Summary ---
Author Organization [employer] Address [address] [facility] 7t [place] [address] Care Team Providers Care Retort Load Expediter Name Role Phone Ellie Suh TEST CONDUCTOR Primary Care Provider Encounter Details Date Type [...] t he electric, gas, oil or water [employer] threatened to shut off services in your [...] 3:00 PM EDT Office Visit [facility] OPTOMETRY [address] [place] [address] Tammy Mercado, OD [address] [place] [address] documented as of this encounter Visit Diagnoses Not on filedocumented in this encounter Additional Health Concerns Assessment Noted Time PHQ-9 Depression Total Score: 0 07/01/20 25 1:02 PM EST documented as of this encounter Care Teams Retort Load Expediter Relationship Specialty Start Date End Date Ellie Suh FNP [address] [place] [address] PCP - General Family Medicine 10/08/24 documented as of this encounter
== END 2025-07-02 13:44 | disposition home or self-care (01) ==
LOC: HO.LNP 13:43
PROVIDERS: Visit Provider Registered Nurse
DX: R10.13 Epigastric pain (principal)
CPT/HCPCS: 87338

== ENCOUNTER 2025-07-10 11:38 | Outpatient (REF) | payer SELFPAY ==
[2025-07-10 14:34] LABS: Reticulocytes Absolute 0.037 X10*6/uL (0.026-0.095)
--- OUTSIDE RECORDS SUMMARY | 2025-07-10 15:27 | XMS_ITS | Encounter Summary ---
Author Organization [employer] Address [address] [place] [address] Care Team Providers Care Slip Feeder Name Role Phone Ellie Suh Primary Care Provider [phone] Reason for Referral * Consultation (Routine) - Closed Specialty Diagnoses / Procedures Referred By Contjayy t Referred To Contact Ophthalmology Diagnoses Combined form of age-related cataract, both eyes Tammy Mercado, OD [address] [place] [address] Phone: tel: fax: Mark Nichols MD [address] [place] [address] Phone: tel: Referral ID Status Reason Start Date Expiration Date V isits Requested Visits Authorized [id number] Closed Specialty Services Required 10/09/2024 10/09/2025 1 1 Encounter Details Date Type Department Care Team (Late st Contact Info) Description 10/09/2024 Orders Only [facility] OPTOMETRY [address] [place] [address] Tammy Mercado, OD [address] [place] [address] Combined form of age-related cataract, both eyes [...] Description 10/14/2025 3:00 PM EDT Office Visit [facility] OPTOMETRY [address] [place] [address] Rogelio, Tammy, OD [address] [place] [address] Scheduled Referrals Name Type Priority Associated Diagnoses [...] documented as of this encounter Care Teams Slip Feeder Relationship Specialty Start Date End Date [place]EllieTADEO [address] [place] [address] PCP - General Family Medicine 10/08/24 documented as of this encounter
--- OUTSIDE RECORDS SUMMARY | 2025-07-10 15:27 | XMS_ITS | Encounter Summary ---
Author Organization [employer] Address [address] [facility] 7t [place] [address] Care Team Providers Care Linen Supervisor Name Role Phone Ellie Suh NAILING MACHINE FEEDER Primary Care Provider [phone] Encounter Details Date Type Department Care Team (Late st Contact Info) Description 01/30/2025 Orders Only [facility] [address] [place] [address] Provider, MD [place] Social History Tobacco Use [...] Description 10/14/2025 3:00 PM EDT Office Visit [facility] OPTOMETRY [address] [place] [address] Rogelio, Tammy, OD [address] [place] [address] documented as of this encounter Procedures Procedure [...] documented as of this encounter Care Teams Linen Supervisor Relationship Specialty Start Date End Date Ellie Suh FNP [address] [place] [address] PCP - General Family Medicine 10/08/24 documented as of this encounter
--- OUTSIDE RECORDS SUMMARY | 2025-07-10 15:27 | XMS_ITS | Encounter Summary ---
Author Organization [employer] Address [address] [facility] [address]t [place] [address] Care Team Providers Care Undercoat Sprayer Name Role Phone Ellie Suh CEILING INSULATION BLOWER Primary Care Provider [phone] Encounter Details Date Type Department Care Team (Late st Contact Info) Description 10/09/2024 Orders Only [facility] OPTOMETRY [address] [place] [address] Rogelio, Tammy, OD [address] [place] [address] Combined form of age-related cataract, both eyes [...] Description 10/14/2025 3:00 PM EDT Office Visit [facility] OPTOMETRY [address] [place], [place] [phone] Rogelio, Tammy, OD [address] [place] [address] documented as of this encounter Visit Diagnoses Diagnosis Combined form of age-related cataract, both eyes- Primary documented in this encounter Additional Health Concerns Assessment Noted Time PHQ-9 Depression Total Score: 4 08/23/19 23 1:45 PM EST documented as of this encounter Care Teams Undercoat Sprayer Relationship Specialty Start Date End Date Ellie Suh FNP [address] [place] [address] PCP - General Family Medicine 10/08/24 documented as of this encounter
--- OUTSIDE RECORDS SUMMARY | 2025-07-10 15:28 | XMS_ITS | Encounter Summary ---
Author Organization [employer] Address [address] [place] [address] 7 [place] [address] Care Team Providers Care Slide Developer Name Role Phone [facility] Primary Care Provider Reason for Visit * Reason Onset Date Comments Results 07/05/2025 Encounter Details Date Type Department Care Team (Latest Contact Info) Description 07/05/2025 Results Follow-Up [facility] [address] [place] [address] [facility] [address] [place] [address] Helicobacter pylori Antigen, EIA, Stool, Comprehensive Metabolic Panel, Lipid Panel, Standard, Additional followed-up results: 2 Social History Tobacco Use Types Packs/Day Years [...] housing situation today? I have del tiffanie 06/17/[address] you li [...] AM EDT documented as of this encounter Miscellaneous Notes * Telephone Encounter - Halle Cordero RN - 07/05/2025 2:52 PM EST TC placed to patient [phone] via [employer] interpreters (#[id number]) in regards to below message. Patient verbalized understanding and is agreeable to POC. [facility] Patient will need a new referral to [facility] GI d/t insurance. Patient reports she will complete additional BW next week. Patient to be contacted with new results once available. Patient to f/u PRN. ----- Message from [facility] sent at 07/05/2025 1:22 PM EST ----- Please let patient know that her h.pylori screen was negative however she should still try taking the omeprazole to see if that helps with her symptoms. I also think she should follow up with GI--please see if she needs a new referral and if there is a location she would like to go CBC shows stable normocytic anemia--I'm not sure what the etiology of this is as her previous labs for this have been unremarkable. I'd like to do some additional bloodwork and go from there. Labs pending. She can come by anytime. Thank you! ----- Message ----- From: Interface, Lab Results In Sent: 07/01/2025 4:24 PM EST To: TADEO Long documented in this encounter Plan of Treatment Upcoming Encounters Date Type Department Care Team (Late st Contact Info) Description 10/14/2025 3:00 PM EDT Office Visit [facility] [address] [place], [place] [phone] Tammy Mercado, OD [address] [place] [address] documented as of this encounter Visit Diagnoses Not on filedocumented in this encounter Additional Health Concerns Assessment Noted Time PHQ-9 Depression Total Score: 0 07/01/20 25 1:02 PM EST documented as of this encounter Care Teams Slide Developer Relationship Specialty Start Date End Date Ellie Suh FNP [address] [place] [address] PCP - General Family Medicine 10/08/24 documented as of this encounter
--- OUTSIDE RECORDS SUMMARY | 2025-07-10 15:28 | XMS_ITS | Clinical Summary ---
Author Organization [employer] Address [address] [place] [address] Care Team Providers Care Mainstreaming Facilitator Name Role Phone Ellie Suh MACHINE PROGRAMMER Primary Care Provider [phone] Allergies No known active allergies Medications Blood [...] that would accept her insurance is in [facility] and transportation is very difficult for her [...] ventricular hypertrophy 08/23/2022 Overview (08/23/2022): Evaluated by [facility] Has followup appt 11/19/22 Assessment & Plan (02/13/2023 7:12 PM EDT): Cleared by [facility]. No f/u needed Osteopenia 11/09/2021 Overview [...] Encounters Date Type Department Care Team Description 07/08/2025 Orders Only [facility] [address] [place] [phone] Ellie Suh FNP Dyspepsia (Primary Dx) 07/05/2025 Orders Only [facility] [address] [place] [address] Olalla EllieTADEO Normocytic anemia (Primary Dx) 07/05/2025 Results Follow-Up [facility] [address] [address] Ellie Suh FNP Helicobacter pylori Antigen, EIA, Stool, Comprehensive Metabolic Panel, Lipid Panel, Standard, Additional followed-up results: 2 07/05/[address] [address] Ellie Suh FNP Results 07/01/2025 1:00 PM EST Office Visit [address] [address] Ellie Suh FNP Dyspepsia (Primary Dx); Primary hypertension; Dietary counseling; Exercise counseling; Class 3 severe obesity due to excess calories with serious comorbidity and body mass index (BMI) of 40.0 to 44.9 in adult (HCC); Encounter for immunization 07/01/2025 Travel 06/17/2025 Patient Outreach [address] [address] OlallaEllie FNP Care Coordination (CHW outreach for SDOH housing search-referral completed ) 06/17/2025 Patient Outreach [facility] [address] [facility] [place] [facility] [place] [address] OlallaEllie chery FNP Pre-visit Planning (SDOH screening negative and tobacco screening negative) 05/15/2025 Telephone [facility] [address] [place] [address] OlallaEllie chery FNP dec recall from Last 3 Months [...] Description 10/14/2025 3:00 PM EDT Office Visit [facility] [address] [place] [address] Rogelio, Tammy, OD [address] [place] [address] Health Maintenance Due Date Last Done Comments [...] 19+ 3-dose series) 03/17/2023 02/17/2023 COVID-19 Vaccine (1 - 2024- season) 2025 Pap Smear 09/20/2025 09/20/2022 Mammogram 03/04/2026 03/04/2025, 11/03/2021 SDOH Screening 06/17/2026 06/17/2025 Alcohol/Substance Use Screening 07/01/2026 07/01/2025 Depression Screening 07/01/2026 07/01/2025, 07/01/20 Diabetes: Hemoglobin A1C 07/01/2026 025, 08/30/2022, 10/01/2021 Disability Screening 07/01/2026 07/01/2025 Tobacco Screening 07/07/2026 07/07/2025 Cervical Cancer Screening 09/20/2027 HPV/Cotest 09/20/2027 09/20/2022 Lipid Panel 07/01/2030 07/01/2025, 01/23, 08/30/2022, Additional history exists DTaP/Tdap/Td Vaccines (2 [...] Procedure Name Priority Date/Time Associated Diagnosis Comments SED RATE BY MODIFIED WESTERGREN Routine 07/10/2025 11:47 AM EST Normocytic anemia RETICULOCYTE COUNT Routine 07/10/2025 11 :47 AM EST Normocytic anemia HELICOBACTER PYLORI AG, EIA, STOOL Routine 07/02/2025 9:34 AM EST Dyspepsia HEMOGLOBIN A1C Routine 07/01/2025 1:50 [...] Recently Relevant to Health Maintenance Results * Sed Rate by Modified Westergren (07/10/2025 11:47 AM EST) Erythrocyte Sedimentation Rate 20 1 - 30 MM/HR [facility] Comment:Patients with polycy themia and many hemoglobin abnormalitiesmay have depressed sed rates whereas patients with anemiamay have elevated sed rates. Blood Venous blood specimen / Unknown 07/10/2025 11:47 AM EST 07/10/2025 2:17 PM EST [facility] LAB BLOOD ORDERABLES Final Re sult Performing Organization Address [facility] Co de Phone Number [facility] [address] [place] [address] [phone] * Helicobacter pylori??Antigen, EIA, Stool (07/02/2025 9:34 AM EST) H pylori Ag Stool SEE NOTE [facility] Comment:HELICOBACTER PYLORI AG, EIA, STOOL Micro Number: [id number] Test Status: Final Specimen Source: Stool Specimen Quality: Adequate H.pylori Ag: Not Detected Antimicrobials, proton pump inhibitors, and bismuth preparations inhibit H. pylori and ingestion up to two weeks prior to testing may cause false negative results. If clinically indicated the test should be repeated on a new specimen obtained two weeks after discontinuing treatment. Reference Range: Not DetectedTHIS TEST WAS PERFORMED AT:[employer] [address] [id number] MANUEL MD Stool Rectal contents / Unknown 07/02/2025 9:34 AM EST 07/02/2025 1:44 PM EST [facility] LAB BODY FLUIDS AND STOOLS OR DERABLES Final Result Performing Organization Address [facility] Co de Phone Number [facility] [address] [place] [phone] * (ABNORMAL) CBC auto differential (07/01/2025 1:50 PM EST) White Blood Count 5.1 4.8 - 10.8 X10*3/uL [facility] Red Blood Count 3.93(L) 4.20 - 5.50 X10*6/uL [facility] Hemoglobin 11.2(L) 12.0 - 16.0 g/dl [facility] Hematocrit 35.1(L) 37.0 - 47.0 % [facility] Mean Corpuscular Volume 89.3 80.0 - 98.0 fL [facility] Mean Corpuscular Hemoglobin 28.5 27.0 - 33.0 pg [facility] Mean Corpuscular HGB Conc 31.9 31.0 - 35.0 g/dl [facility] Red Cell Distribution Width 13.3 11.0 - 16.0 % [facility] Platelet Count 293 160 - 400 X10*3/uL [facility] Mean Platelet Volume 11.1 9.4 - 12.3 fL [facility] Neutrophils Percent Auto 43.8(L) 45 - 73 % [facility] Imm Gran Pct Auto 0.2 0.0 - 0.4 % [facility] Lymphocytes Percent Auto 44.6(H) 20 - 40 % [facility] Monocytes Percent Auto 9.2 2 - 11 % [facility] Eosinophils Percent Auto 1.8 0 - 4 % [facility] Basophils Percent Auto 0.4 0 - 2 % [facility] NRBC Pct Auto 0.0 0.0 - 0.2 /100WBC [facility] Neutrophils Absolute Auto 2.2 2.0 - 8.3 x10*3/uL [facility] Imm Gran Abs Auto 0.01 0.00 - 0.03 X10*3/uL [facility] Lymphocytes Absolute Auto 2.3 1.2 - 4.9 X10*3/uL [facility] Monocytes Absolute Auto 0.5 0.1 - 1.2 X10*3/uL [facility] Eosinophils Absolute Auto 0.1 0.0 - 0.4 X10*3/uL [facility] Basophils Absolute Auto 0.0 0.0 - 0.2 X10*3/uL [facility] NRBC Abs Auto 0.000 0.0 - 0.012 X10*3/uL [facility] Blood Venous blood specimen / Unknown 07/01/2025 1:50 PM EST 07/01/2025 4:07 PM EST [facility] LAB BLOOD ORDERABLES Final Re sult Performing Organization Address [facility] Co de Phone Number [facility] [address] [place] [phone] * Hemoglobin A1c (07/01/2025 1:50 PM EST) Hemoglobin A1c 6.0 <6.0 % [facility] Comment:Hemoglobin A1C Refer ence Range Adults: 4.8 - 6.0 % Non diabetic: < 6.0 % Goal: < 7.0 %Additional Action Suggested: > 8.0 %Note: Hemoglobin A1c results are invalid for patients with abnormal amounts of HbF. Blood transfusions may impact the HbA1c concentration in the patient sample. Estimated Average Glucose 126 mg/dL [facility] Comment:eAG = Estimated ave rage glucose which is %A1C expressed asaverage glucose, using the formula of the H2L-MwezmuxNxeymix Glucose study (ADAG), Diabetes Care, Vol.31,#8,Feb. 2007 Blood Venous blood specimen / Unknown 07/01/2025 1:50 PM EST 07/01/2025 4:07 PM EST [facility] LAB BLOOD ORDERABLES Final Re sult Performing Organization Address [facility] Co de Phone Number [facility] [address] [place] [phone] * (ABNORMAL) Lipid Panel, Standard (07/01/2025 1:50 PM EST) Triglycerides 109 <150 mg/dL [facility] Comment:Desirable Triglyceri de: less than 150 mg/dLBorderline High Triglyceride 150-199 mg/dLHigh Triglyceride: 200-499 mg/dLVery High Triglyceride: greater than or equal to 5OO mg/dL Cholesterol 203(H) <200 mg/dL [facility] Comment:Desirable Cholestero l: less than 200 mg/dLBorderline High Cholesterol: 200-239 mg/dLHigh Cholesterol: greater than 239 mg/dL LDL Cholesterol Calculated 126(H) <100 mg/dL [facility] Comment:Desirable LDL: less than 100 mg/dLNear Optimal/Above Optimal LDL: 110- 129 mg/dLBorderline High LDL: 130-159 mg/dLHigh LDL: 160-189 mg/dLVery High LDL: greater than or equal to 190 mg/dL HDL Cholesterol 56 >40 mg/dL [facility] Comment:Desirable HDL: great er than 40 mg/dL Note: This HDL assay may give artificially low results in patients with liver disease. Blood Venous blood specimen / Unknown 07/01/2025 1:50 PM EST 07/01/2025 4:07 PM EST [facility] LAB BLOOD ORDERABLES Final Re sult [facility] [address] [place] [address] [phone] * (ABNORMAL) Comprehensive Metabolic Panel (07/01/2025 1:50 PM EST) Sodium 141 135 - 145 mmol/L [facility] Potassium 4.1 3.3 - 5.1 mmol/L [facility] Chloride 108 96 - 108 mmol/L [facility] Carbon Dioxide 27 22 - 29 mmol/L [facility] Anion Gap 10(L) 12 - 20 [facility] Urea Nitrogen (BUN) 14 9 - 16 mg/dL [facility] Creatinine, Serum 0.72 0.5 - 1.4 mg/dL [facility] Estimated Glomerular Filt Rate >60 [facility] Comment:Chronic Kidney Disea se: Estimated GFR < 60 mL/min/1.66k6Oxndpp Kidney Disease: Estimated GFR < 15 mL/min/1.73m2 Glucose 83 60 - 115 mg/dL [facility] Calcium 9.1 8.4 - 10.2 mg/dL [facility] Bilirubin, Total 0.1 0.0 - 1.0 mg/dL [facility] Aspartate Amino Transferase 24 5 - 31 U/L [facility] Alanine Aminotransferase 16 0 - 31 U/L [facility] Total Protein 7.2 6.5 - 8.0 g/dL [facility] Albumin Level 4.2 3.5 - 5.0 g/dL [facility] Alkaline Phosphatase 63 39 - 117 U/L [facility] Blood Venous blood specimen / Unknown 07/01/2025 1:50 PM EST 07/01/2025 4:07 PM EST Ellie Olalla MACHINE PROGRAMMER LAB BLOOD ORDERABLES Final Re sult [facility] [address] [place] [address] [phone] * BI Mammogram Screening Tomosynthesis Bilateral (03/04/2025 3:07 PM EDT) Anatomical Region Laterality Modality Breast Bilateral Mammography 03/04/2025 3:07 PM EDT Narrative 03/12/2025 10:12 AM EDT [facility] [address] [place] [address] Mammography Report Signed Patient: Reyna Magana MR#: [id number] : 1965 Acct:[id number] Age/Sex: 59 / F ADM Date: 03/04/25 Loc: HO.MAMMO Attending Dr: Ellie Suh MACHINE PROGRAMMER Ordering Physician: Ellie Suh Results: 1Nega tive Date of Service: 03/04/25 Follow Up: 1 Year From [facility] ina Mammogram Procedure(s): MM tomosynthesis screening BI Accession Number(s): [id number] cc: Ellie Suh MACHINE PROGRAMMER EXAMINATION: MM SCREENING DIGITAL BREAST TOMOSYNTHESIS, BILATERAL [...] 03/12/25 1010 DD/ 1507 TD/TT: 03/04/25 1537 Equipment Records Supervisor: Procedure Note Donotuseinterpreter, Image - 03/12/2025 [facility] [address] [place] [address] Mammography Report Signed Patient: Reyna Magana#: [id number] : 1965Acct:[id number] Age/Sex: 59 / FADM Date: 03/04/25 Loc: TOVA Attending Dr: Ellie Suh MACHINE PROGRAMMER Ordering Physician: Ellie Suh FNPResults: 1Nega tive Date of Service: 03/04/25Follow Up: 1 Year From Orig inal Mammogram Procedure(s): MM tomosynthesis screening BI Accession Number(s): [id number] cc: Ellie Suh MACHINE PROGRAMMER EXAMINATION: MM SCREENING DIGITAL BREAST TOMOSYNTHESIS, BILATERAL [...] Jessica Villa DO 03/12/2025 10:10 AM EDT RP Dictated By: Jessica Villa DO Signed By: <Electronically signed by Jessica Villa DO in OV> 03/12/25 1010 DD/ 1507 TD/TT: 03/04/25 1537 Equipment Records Supervisor: [facility] MACHINE PROGRAMMER IMG BI PROCEDURES Final Resul t * Colonoscopy (01/28/2025 12:41 PM EDT) Anatomical Region Laterality Modality Endoscopy Historical Provider MD ENDOSCOPY PROCEDURE ORDER CUONG Final Result * Hepatitis Panel, General (02/17/2023 10:17 AM EDT) Hepatitis A IgM Nonreactive Nonreactive [facility] Comment:IgM antibodies to PARDO V not detected; does not exclude earlyacute or recovered HAV infection. ~Hepatitis B Surface Antibody NONREACTIVE Nonreactive [facility] Comment:Nonreactive: < 8.00 mIU/mL Hepatitis B Core Antibody Nonreactive Nonreactive [facility] Hepatitis C Antibody Nonreactive Nonreactive [facility] Comment:Antibodies to HCV no t detected; does not exclude early acuteHCV infection. Hepatitis B Surface Ag Negative Negative [facility] Blood 02/17/2023 10:1 7 AM EDT 02/17/2023 11:18 AM EDT Charmaine Cheney MACHINE PROGRAMMER LAB BLOOD ORDERABLES Final Result [facility] [address] [place] [address] [phone] * Thinprep TIS PAP And HPV mRNA E6/E7 With Reflex To HPV 16,18/45 (09/20/2022 3:11 PM EST) Clinical Information: None given 57 YEAR OLD FEMALE WITH LAST PAP 3 [employer] LMP: NONE GIVEN [employer] Prev. PAP: NONE GIVEN [employer] Prev. BX: NO [employer] SOURCE: None given FFWDt Statement Of Adequacy: SATISFACTORY FOR EVALUATION FFWDt Interpretation/Re sult: FFWDt Comment: Negative for intraepithelial lesion or malignancy. Atrophic pattern; predominantly parabasal cells Comment: This Pap test has been evaluated with computer assisted technology. [employer] Sifting Operator: [facility] [employer] Comment: BK,CT(ASCP) CT screening location: [address] (Always Message) [facility] Comment: EXPLANATORY NOTE: The Pap is a [...] HPV nRNA E6/E7 Not Detected Not Detected [employer] Comment: Methodology: Insulator Cutter And Former-Mediated Amplification This assay detects E6/E7 viral messenger RNA (mRNA) from 14 high-risk HPV types (16,18,31,33,35,39,45,51,52,56,58,59,66,68). Cervical sources are required for HPV testing. If a vaginal source from a patient who has had a total hysterectomy with removal of cervix was submitted, please contact the testing laboratory for alternative testing options. For additional information, please refer to http://education.[employer]/faq/FPA696l4 (This link if provided for information/ educational purposes only.) Genital fluid specimen (specimen) 09/20/2022 3:11 PM EST 09/21/2022 8:56 PM EST Charmaine hCeney MACHINE PROGRAMMER LAB PATHOLOGY ORDERABLES F inal Result Performing Organization Address [facility]/ZIP Co de Phone Number [facility] [address] [place] [address] [facility] [address], ([address]) [place] [address] * HIV 1/2 ANTIGEN/ANTIBODY,FOURTH GENERATION W/RFL (10/01/2021 10:50 AM EST) HIV-1/2 ANTIGEN AND ANTIBODIES, 4TH GENERATION W/ REFLEX NON-REACT JAGDEEP NON-REACT JAGDEEP [facility] Comment: HIV-1 antigen and HIV-1/HIV-2 [...] purpose. For additional information please refer to http://education.[employer]/faq/WGI253 (This link is being provided for informational/ educational purposes only.) The performance of this assay has not been clinically validated in patients less than 2 years old. 10/01/2021 10:5 0 AM EST us Rolanda Patino MACHINE PROGRAMMER LAB BLOOD ORDERABLES Final Res ult [facility] [address] from Last 3 Months or Most Recently Relevant to Health Maintenance Insurance [employer] [facility] Care Teams Mainstreaming Facilitator Relationship Specialty Start Date End Date OlallaEllie chery FNP [address] [place] [phone] PCP - General Family Medicine 10/08/24
--- OUTSIDE RECORDS SUMMARY | 2025-07-10 15:28 | XMS_ITS | Encounter Summary ---
Author Organization [employer] Address [address] [place] [address] [address] [place] [address] Care Team Providers Care Exhibit Technician Name Role Phone [facility] Primary Care Provider [phone] Reason for Visit * Reason Onset Date Comments Results 07/05/2025 Encounter Details Date Type Department Care Team ([facility] Contact Info) Description 07/05/2025 Telephone [facility] [address] [place], [place] [phone] [facility] [address] [place] [address] Results Social History Tobacco Use Types Packs/Day Years [...] encounter Miscellaneous Notes * Telephone Encounter - Tad Nuno - 07/05/2025 11:27 AM EST TC from pt requesting call back regarding Results. Type of results: lab oders Date when done: 07/01 Facility: [facility] Giulia pt at [phone] documented in this encounter Plan of Treatment Upcoming Encounters Date Type Department Care Team (Late st Contact Info) Description 10/14/2025 3:00 PM EDT Office Visit [facility] [address] [place] [address] Rogelio, Tammy, OD [address] [place] [address] documented as of this encounter Visit Diagnoses Not on filedocumented in this encounter Additional Health Concerns Assessment Noted Time PHQ-9 Depression Total Score: 0 07/01/20 25 1:02 PM EST documented as of this encounter Care Teams Exhibit Technician Relationship Specialty Start Date End Date Ellie Suh FNP [address] [place] [address] PCP - General Family Medicine 10/08/24 documented as of this encounter
--- OUTSIDE RECORDS SUMMARY | 2025-07-10 15:28 | XMS_ITS | Encounter Summary ---
Author Organization [employer] Address [address] [facility] 7[address] [place] [address] Care Team Providers Care Muffler Installer Name Role Phone Lahaina [facility] Primary Care Provider [phone] Encounter Details Date Type Department Care Team (Late st Contact Info) Description 07/05/2025 Orders Only [facility] WALK-IN CENTER [address] [place] [address] Lahaina [facility] [address] [place] [address] Normocytic anemia (Primary Dx) Social History Tobacco Use Types [...] 3:00 PM EDT Office Visit [facility] OPTOMETRY [address] [place] [address] Rogelio, Tammy, OD [address] [place] [address] Pending Results Name Type Priority Associated Diagnoses Date /Time Reticulocyte Count Lab Routine Normocytic anemia 07/10/2025 11:47 AM EST Scheduled Orders Name Type Priority Associated Diagnoses Orde r Schedule Pathologist Review Of Peripheral Smear Lab Routine Normocytic anemia Expected: 07/05/2025 (Approximate), Expires: 07/05/2026 C-reactive Protein Lab Routine Normocytic anemia Expected: 07/05/2025 (Approximate), Expires: 07/05/2026 TSH W/Reflex to FT4 Lab Routine Normocytic anemia Expected: 07/05/2025 (Approximate), Expires: 07/05/2026 Iron And Total Iron Binding Capacity Lab Routine Normocytic anemia Expected: 07/05/2025, Expires: 07/05/2026 Ferritin Lab Routine Normocytic anemia Expected: 07/05/2025 (Approximate), Expires: 07/05/2026 documented as of this encounter Procedures Procedure Name Priority Date/Time Associated Diagnosis Comments SED RATE BY MODIFIED WESTERGREN Routine 07/10/2025 11:47 AM EST Normocytic anemia RETICULOCYTE COUNT Routine 07/10/2025 11 :47 AM EST Normocytic anemia documented in this encounter Results * Sed Rate by Modified Westergren (07/10/2025 11:47 AM EST) Erythrocyte Sedimentation Rate 20 1 - 30 MM/HR [facility] Comment:Patients with polycy themia and many hemoglobin abnormalitiesmay have depressed sed rates whereas patients with anemiamay have elevated sed rates. Blood Venous blood specimen / Unknown 07/10/2025 11:47 AM EST 07/10/2025 2:17 PM EST [facility] LAB BLOOD ORDERABLES Final Re sult [facility] [address] [place] [phone] documented in this encounter Visit Diagnoses Diagnosis Normocytic anemia- Primary Unspecified anemia documented in this encounter Additional Health Concerns Assessment Noted Time PHQ-9 Depression Total Score: 0 07/01/20 1:02 PM EST documented as of this encounter Care Teams Muffler Installer Relationship Specialty Start Date End Date LahainaEllie SUPERVISOR WATERPROOFING [address] [place] [phone] PCP - General Family Medicine 10/08/24 documented as of this encounter
--- OUTSIDE RECORDS SUMMARY | 2025-07-10 15:28 | XMS_ITS | Clinical Summary ---
Author Organization [facility] Address [address] [place] [id number] Phone Care Team Providers Care Guest Services Agent Name Role Phone Pcp, Unknown Primary Care Provider Unavailabl e Allergies No known active allergies Medications blood pressure monitor (BLOOD PRESSURE KIT) Kit as directed. 5 Active calcium carbonate (OS-RONALD) 1,500 mg (600 mg elemental) tablet Take 600 mg by mouth. 5 01/17/20 26 Active famotidine (PEPCID) 20 MG tablet Take 20 mg by mouth. 4 Active cholecalciferol (VITAMIN D3) 2,000 unit capsule Take 50 mcg by mouth. 5 Active hydroCHLOROthia zide 25 MG tablet Take 25 mg by mouth daily. 5 Active omeprazole (PRILOSEC) 20 MG capsule TAKE 1 CAPSULE BY MOUTH EVERY DAY WITH BREAKFAST, DO NOT BREAK, CRUSH, DISSOLVE OR CHEW 5 Active omeprazole (PRILOSEC) 20 MG tablet Take 20 mg by mouth. 5 07/01/20 26 Active tiZANidine (ZANAFLEX) 2 MG tablet Take 2 mg by mouth every 6 (six) hours as needed. 4 Active valsartan (DIOVAN) 320 MG tablet Take 320 mg by mouth daily. 5 Active moxifloxacin (VIGAMOX) 0.5 % ophthalmic solution Use one drop in left eye 4 times daily beginning 2 days before surgery 5 mL 2 5 Active prednisoLONE acetate (PRED FORTE) 1 % ophthalmic suspension Use one drop 4 times daily in left eye, beginning one day after surgery. Shake well. 5 mL 1 5 Active ketorolac (ACULAR) 0.5 % ophthalmic solution Place 1 drop into the left eye 4 (four) times a day. Use one drop 4 times daily in left eye, beginning 2 days before surgery 5 mL 2 Active Encounters Date Type Department Care Team Description 07/04/2025 2:40 PM EST Office Visit 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) from Last 3 Months Social History Tobacco Use Types Packs/Day Years [...] Orientation Not on file Plan of Treatment Health Maintenance Due Date Last Done Comments CREATININE LEVEL 1967 POTASSIUM LEVEL 1967 DEPRESSION SCREENING 1979 SMOKING Hx and SMOKELESS TOB ACCO SCREENING 1980 HEPATITIS C SCREENING 1985 HIV ONE-TIME SCREENING (18-6 5 YEARS) 1985 PAP SMEAR 1988 COLOGUARD 2012 COLONOSCOPY 2012 COLORECTAL CANCER SCREENING 2012 FIT TEST 2012 FOBT 2012 SIGMOIDOSCOPY 2012 VIRTUAL COLONOSCOPY 2012 PNEUMOCOCCAL VACCINES (50+ y ears) (1 of 1 - PCV) 2017 ZOSTER VACCINES (1 of 2) 2017 INFLUENZA VACCINE (#1) 2025 COVID-19 VACCINE (1 - 2024-2 6 season) 2025 MAMMOGRAM 03/04/2027 03/04/2025 LIPID PANEL 07/01/2030 07/01/2025 Adult Td,Tdap Booster 01/14/2035 01/14/2025 RSV VACCINE (1 - 1-dose 75+ series) [...] this topic Medical Devices Not on file Procedures Procedure Name Priority Date/Time Associated Diagnosis Comments OPTICAL BIOMETRY - OU - BOTH EYES Routine 07/04/2025 4:44 PM EST Combined forms of age-related cataract of both eyes OCT, RETINA - OU - BOTH EYES Routine 07/04/2025 4:44 PM EST Combined forms of age-related cataract of both eyes from Last 3 Months Results * Optical Biometry - OU - Both Eyes (07/04/2025 4:44 PM EST) Narrative HARMONY - 07/04/2025 4:44 PM EST I have reviewed the biometry data. Satya Hightower MD OPHTHALMOLOGY IMAGING Christine l Result Performing Organization Address [facility] de Phone Number HARMONY * OCT, RETINA - OU - BOTH EYES - [employer]; Retina (07/04/2025 4:44 PM EST) Narrative HARMONY - 07/04/2025 4:44 PM EST Right Eye Quality was good. Findings include normal observations. Left Eye Quality was good. Findings include normal observations. Satya Hightower MD OPHTHALMOLOGY IMAGING Christine l Result Performing Organization Address [facility] de Phone Number [employer] from Last 3 Months Insurance [facility] FULL [facility] FULL [facility] FULL [facility] FULL Care Teams Guest Services Agent Relationship Specialty Start Date End Date Pcp, Unknown PCP - General 01/14/25 Additional Source Comments The information contained in this document represents components of the legal health record. It is not the complete legal health record.[facility]
--- OUTSIDE RECORDS SUMMARY | 2025-07-10 15:28 | XMS_ITS | Encounter Summary ---
Author Organization [employer] Address [address] [place] [address] [place] [address] Care Team Providers Care Neck Skewer Name Role Phone Ellie Suh Primary Care Provider Reason for Referral * Consultation (Routine) - Authorized Specialty Diagnoses / Procedures Referred By Giulia avila Referred To Contact Gastroenterology Diagnoses Dyspepsia Ellie Suh FNP [address] [place] [address] Phone: tel: fax: Gastroenterology Dept., [address]/[facility], Elevator C to Level [address] [place], [place] Phone: tel: fax: Referral ID Status Reason Start Date Expiration Date Visits Requested Visits Authorized [id number] Authorized Specialty Services Required 5 07/08/2026 1 1 Encounter Details Date Type Department Care Team (Late st Contact Info) Description 07/08/2025 Orders Only [facility] WALK-IN CENTER [address] [place], [place] [phone] Ellie Suh FNP [address] [place], [place] [phone] Dyspepsia (Primary Dx) Social History Tobacco Use Types [...] Description 10/14/2025 3:00 PM EDT Office Visit [facility] OPTOMETRY [address] [place] [address] Rogelio, Tammy, OD [address] [place] [address] Scheduled Referrals Name Type Priority Associated Diagnoses Order Schedule Referral to Gastroenterology Outpatient Referral Routine Dyspepsia Expected: 07/08/2025 (Approximate), Expires: 07/08/2026 documented as of this encounter Visit Diagnoses Diagnosis Dyspepsia- Primary Dyspepsia and other specified disorders of function of stomach documented in this encounter Additional Health Concerns Assessment Noted Time PHQ-9 Depression Total Score: 0 07/01/20 1:02 PM EST documented as of this encounter Care Teams Neck Skewer Relationship Specialty Start Date End Date Ellie Suh FNP [address] [place] [phone] PCP - General Family Medicine 10/08/24 documented as of this encounter
--- OUTSIDE RECORDS SUMMARY | 2025-07-10 15:28 | XMS_ITS | Clinical Summary ---
Author Organization [facility] Address [address] [place] [address] Care Team Providers Care Interior Design Professional Name Role Phone Charmaine Cheney Primary Care Provider [phone] Allergies No known active allergies Medications amLODIPine [...] 01/28/2035 01/28/2025, 01/28/2025 Procedures * Due to [place] law, this organization might not be sharing negative HIV tests. Procedure Name Priority Date/Time Associated Diagnosis Comments COLONOSCOPY 01/28/2025 from Last 3 Months or Most Recently Relevant to Health Maintenance Results * Due to [place] law, this organization might not be sharing negative HIV tests. * COLONOSCOPY (01/28/2025) Narrative Procedure Note Syl Mcdonough MD - 01/28/2025 1:01 PM EDT [facility] Endoscopy - [address] [facility] Patient Name: Reyna Trinidad Procedure Date: 51:01 PM Date of : 1965 Admit Type: Outpatient Age: 59 Room: [facility] 03 Gender: Female Note Status: Finalized Attending [...] by the physician, the nurse and the metal technician in the pre-procedure area in theprocedure [...] Most Recently Relevant to Health Maintenance [facility] Care Teams Interior Design Professional Relationship Specialty Start Date End Date Charmaine Cheney [address] [place] [phone] PCP - General Family Medicine 10/25/22
[2025-07-10 15:54] LABS: Iron 97 mcg/dL (30-160); Percent Iron Saturation 40 % (15-50); Total Iron Binding Capacity 243 mcg/dL (228-428); Unsaturated Iron Binding 146 ug/dL
[2025-07-10 15:58] LABS: Ferritin 122 ng/mL (10-250)
== END 2025-07-10 11:39 | disposition home or self-care (01) ==
LOC: HO.HHCL 11:38
PROVIDERS: PCP Registered Nurse; Visit Provider Registered Nurse
DX: D64.9 Anemia, unspecified (principal)
CPT/HCPCS: 82728; 83540; 84443; 85045; 85652; 86140